=== PATIENT | male | born 1935 | race Caucasian/White ===

== ENCOUNTER 2017-04-29 23:01 | Observation (INO) | payer MEDICARE, OTHER ==
[2017-04-29 23:23] LABS: #Eosinphils 0.3 thou/uL (0.0-0.7); #Monocytes 0.9 thou/uL (0.11-0.59); #Neutrophils 3.7 thou/uL (1.40-6.50); %Basophils 0.4 % (0.0-1.0); %Eosinophils 3.9 % (0.0-10.0); %Lymphocytes 29.2 % (21.0-51.0); %Monocytes 12.6 % (0.0-10.0); Hemoglobin 16.5 g/dL (14.0-18.0); Mean Corpuscular HGB CONC 34.1 g/dL (32.0-36.0); Mean Corpuscular Hemoglobin 32.8 pg (27.0-31.0); Mean Corpuscular Volume 96.3 fl (80.0-94.0); Mean Platelet Volume 7.2 fL (7.4-10.4); Platelet Count 157 thou/uL (130-400); RBC Distribution Width 11.9 % (11.5-14.5); Red Blood Cell (RBC) Count 5.02 mill/uL (4.70-6.10); White Blood Cell (WBC) Count 6.9 thou/uL (4.8-10.8)
[2017-04-29] MEDS ORDERED: Nitroglycerin 2% Ointment 1 INCH/1 GM Packet ONE (23:25)
--- NOTE | 2017-04-29 23:28 | RAD ---
CHEST ONE VIEW 04/29/17 HISTORY: Chest pain. COMPARISON: None. FINDINGS: Portable upright chest demonstrates atherosclerosis of the aorta. Heart size is within normal limits. Costophrenic angles are clear. Diminished lung volumes, likely due to a poor inspiratory effort. Int erstitial opacities in the lung bases likely represent atelectasis. No consolidation or mass. No pneu mothorax or osseous abnormalities. Probable loose body fragment in the left glenohumeral joint. IMPRESSION: 1. Atherosclerosis. 2. No acute cardiopulmonary process. POS: [facility]
[2017-04-29 23:42] LABS: ALT (SGPT) 18 U/L (8-55); AST (SGOT) 29 U/L (5-34); Albumin 4.4 g/dL (3.4-4.8); Alkaline Phosphatase 80 U/L (40-150); Anion Gap 13 mmol/L (10-20); BUN (Urea Nitrogen) 15 mg/dL (8.4-25.7); Bilirubin, Total 0.8 mg/dL (0.2-1.2); CK (CPK) 112 U/L (30-200); Calc. Creatinine Clearance 0 mL/min (70-130); Calcium 9.9 mg/dL (7.8-10.44); Carbon Dioxide 28 mmol/L (23-31); Chloride 104 mmol/L (98-107); Estimated GFR-MDRD 67; Glucose 102 mg/dL (83-110); Potassium 3.8 mmol/L (3.5-5.1); Protein, Total 7.4 g/dL (5.8-8.1); Sodium 141 mmol/L (136-145)
[2017-04-29 23:52] LABS: CKMB 2.5 ng/mL (0-6.6); Troponin I Less than 0.010 ng/mL (< 0.028)
[2017-04-30 00:46] LABS: Bilirubin Negative (Negative); Blood, Urine Negative (Negative); Clarity CLEAR (Clear); Glucose, Urine (Dipstick) Negative (Negative); Leukocyte Negative (Negative); Nitrite Negative (Negative); Protein, Urine (Dipstick) Negative (Neg-Trace); Specific Gravity, Urine 1.015 (1.002-1.036); Urobilinogen 0.2 mg/dL (0.2-1.0); pH, Urine 6.5 (5.0-9.0)
[2017-04-30] MEDS ORDERED: Acetaminophen 325 MG TAB PO PRN ×2 (01:41→03:33)
[2017-04-30] MEDS ORDERED: Ondansetron HCl/PF 4 MG/2 ML Vial IVP PRN ×2 (01:41→03:33)
[2017-04-30] MEDS ORDERED: Ondansetron ODT 4 MG TAB SL PRN (01:41)
[2017-04-30 02:10] VITALS: BMI 26.8
[2017-04-30 02:55] LABS: Troponin I Less than 0.010 ng/mL (< 0.028)
[2017-04-30] MEDS ORDERED: Senokot 8.6 MG TAB PO PRN (03:33)
[2017-04-30] MEDS ORDERED: Nitroglycerin 0.4 MG TAB (25 Tab Bottle) SL PRN (03:33)
[2017-04-30] MEDS ORDERED: cloNIDine 0.1 MG TAB PO PRN (03:33)
[2017-04-30] MEDS ORDERED: Loratadine 10 MG TAB PO PRN (03:33)
[2017-04-30] MEDS ORDERED: Mag-Al 1200 mg/1200 mg/30 ML UDCUP PO PRN (03:33)
[2017-04-30] MEDS ORDERED: Diabetic Tussin 200 MG/10 ML UDCUP PO PRN (03:33)
[2017-04-30] MEDS ORDERED: traMADol HCl 50 MG TAB PO PRN (03:33)
[2017-04-30] MEDS ORDERED: Benzonatate 100 MG CAP PO PRN (03:33)
[2017-04-30] MEDS ORDERED: HYDROcodone/Acetaminophen 5/325 mg Tablet PO PRN (03:33)
[2017-04-30] MEDS ORDERED: hydrALAZINE 20 MG/ML VIAL SLOW IVP PRN (03:33)
[2017-04-30] MEDS ORDERED: Calcium Carbonate 500 MG ChewTAB PO PRN (03:33)
[2017-04-30] MEDS ORDERED: Bisacodyl 5 MG TAB PO PRN (03:33)
[2017-04-30 06:19] LABS: Cardiac Risk 3.1 (Less than 4.5)
[2017-04-30 06:24] LABS: Troponin I Less than 0.010 ng/mL (< 0.028)
--- NOTE | 2017-04-30 06:35 | HP ---
DATE OF ADMISSION: 04/30/2017 PRIMARY CARE PHYSICIAN: Kojo Walker M.D. CHIEF COMPLAINT: Chest pain. HISTORY OF PRESENTING ILLNESS: Mr. Morillo is a very pleasant 82-year-old male with past med ical history of hypertension and dyslipidemia who presented to the emergency room with the above-ment ioned complaint. History is mainly obtained by the patient himself and electronic medical records marie ve been reviewed. The patient reports that he is normally very active and works out on a regular basis. However, after his most recent workout about 2 days ago, he started to notice some left-sided chest pain which is s harply localized. It comes and goes, and it is not too severe. It is not associated with diaphoresi s, vomiting, palpitation or dizziness. It is nonradiating. He tried to put some heating pad on it, but it did not get better. The patient denies history of similar symptoms in the past. He presented to the ER last evening. In the emergency room, he was hemodynamically stable although a little bit hypertensive with blood pr essure of 169/95. His EKG showed nonspecific repolarization changes. His cardiac enzymes were trend ed and were negative. He received aspirin in the emergency room and is now being admitted for furthe r workup to rule out ACS. The patient never has been diagnosed with any cardiac disease. He has nev er had any risk stratification done. No significant family history except for some question of heart disease in his mother. He is a nonsmoker. PAST MEDICAL HISTORY: 1. Hypertension. 2. Dyslipidemia. 3. History of bladder cancer. PAST SURGICAL HISTORY: 1. Bladder tumor removal. 2. Hernia repair. SOCIAL HISTORY: The patient used to smoke cigarettes in the past, but has quit now. No history of d rug or alcohol abuse. ALLERGIES: No known medication allergies. MEDICATIONS: Aspirin 81 mg daily, amlodipine 5 mg daily, simvastatin daily, Aricept 5 mg daily, Marlon pro 10 mg daily. These medication dosages would need to be clarified further. REVIEW OF SYSTEMS: The following complete review of systems was negative, unless otherwise mentioned in the HPI or below: Constitutional: Weight loss or gain, ability to conduct usual activities. Sk in: Rash, itching. Eyes: Double vision, pain. ENT/Mouth: Nose bleeding, neck stiffness, pain, te nderness. Cardiovascular: Palpitations, dyspnea on exertion, orthopnea. Respiratory: Shortness of breath, wheezing, cough, hemoptysis, fever or night sweats. Gastrointestinal: Poor appetite, abdom inal pain, heartburn, nausea, vomiting, constipation, or diarrhea. Genitourinary: Urgency, frequenc y, dysuria, nocturia. Musculoskeletal: Pain, swelling. Neurologic/Psychiatric: Anxiety, depressio n. Allergy/Immunologic: Skin rash, bleeding tendency. LABORATORY AND DIAGNOSTIC DATA: CBC is unremarkable except for macrocytosis without anemia. Serum c hemistries are entirely unremarkable. Cardiac enzymes, troponin less than 0.010 x2 with normal CK-MB . Creatinine kinase is normal at 112, BNP of 49. Urinalysis unremarkable. Chest x-ray by my review has no evidence to suggest pleural effusion, edema, or infiltrate. A 12-lead EKG by my review shows normal sinus rhythm without any acute ST or T-wave changes. He does have some nonspecific repolariz ation changes and first degree AV block. PHYSICAL EXAMINATION: VITAL SIGNS: Recent vital signs, temperature 97.8, pulse of 51, respirations 14, saturating 93% to 9 5% on room air, blood pressure is 111/60. GENERAL: In no acute distress. Awake, alert, oriented x3. HEENT: Mucous membrane is moist and pink. No oropharyngeal exudate or erythema. Head is normocepha lic, atraumatic. Pupils are equal, reactive to light and accommodation. NECK: Supple without any lymphadenopathy, JVD, or bruit. CHEST: Clear to auscultation without any wheezing, rales, or rhonchi. Rate and rhythm are regular w ithout any murmur, rubs, or gallops. He does not have any tenderness on the palpation of the left an terior chest. ABDOMEN: Soft, nontender, nondistended with positive bowel sounds. No guarding, rebound, or rigidit y. No hepatosplenomegaly. EXTREMITIES: Free of any cyanosis, clubbing, or edema. NEUROLOGIC: Nonfocal. SKIN: Free of any rashes or bruises. Feels warm and dry to touch. PSYCHIATRIC: Normal affect. VASCULAR: +2 pedal pulses felt bilaterally. IMPRESSION AND PLAN: 1. Chest pain. This is likely secondary to musculoskeletal strain given his normal EKGs and serial cardiac enzymes; however, the patient has multiple risk factors in the form of advanced age, hyperten shereen, and dyslipidemia along with some family history. He also has a remote history of tobacco abuse . At this time, he will be admitted for further risk stratification. We will continue aspirin full dose now and restart his beta malina and statin and obtain a nuclear medicine stress test in the [facility]. He is currently hemodynamically stable. The likelihood of pulmonary embolism or aortic dissec tion or aneurysm is clinically very low. The patient has no hypoxia, hypotension, and he appears hem odynamically very stable. We will also check a lipid panel. Further management will depend upon the results of the stress test. 2. History of hypertension. We will restart his home medications once confirmed. 3. Dyslipidemia. Restart statin. 4. History of mild cognitive impairment. We will restart his Aricept. 5. Deep venous thrombosis and gastrointestinal prophylaxis DISPOSITION: The patient is currently being admitted under observation status for ACS workup. Furth er management will depend upon his clinical course.
[2017-04-30 07:43] VITALS: TEMP 97.5
[2017-04-30] MEDS ORDERED: Amlodipine 5 MG TAB PO SCH (09:00)
[2017-04-30] MEDS ORDERED: Enoxaparin Sodium 40 MG/0.4 ML SYRINGE SC SCH (09:00)
[2017-04-30] MEDS ORDERED: Donepezil HCl 5 MG TAB PO SCH (09:00)
[2017-04-30] MEDS ORDERED: Aspirin 325 MG TAB PO SCH (09:00)
[2017-04-30 11:36] VITALS: BP 161/79
--- NOTE | 2017-04-30 12:24 | SS ---
DATE OF ADMISSION: 04/30/2017 DATE OF DISCHARGE: 04/30/2017 PRIMARY CARE PHYSICIAN: Kojo Walker M.D. REASON FOR ADMISSION: Chest pain. HISTORY OF PRESENT ILLNESS: An 82-year-old male with history of hypertension, dyslipidemia, who came to emergency room last night with complaint of chest pain. Patient was having one particular point nearby epigastric chest pain, which he attributes to do upper body exercise, which he regularly does at gym and he did over couple of days ago and since then he was having that point tenderness in his chest. It was localized, left-sided, sharp and it was improving with pain medication, but coming back when pain medication is at go away. Last night his pain was persistent and sharp and it was not reducing with pain medication and he was concerned about heart attack and that is why he came to the emergency room. He denies any exertion related chest pain , palpitations, dizziness, syncope. He denies any nausea, vomiting, or diaphoresis. He denies any shortness of breath. He did not have any cough or fever. In the emergency room, his EKG showed normal sinus rhythm without any significant changes. He was given aspirin. Subsequently after admission, he had negative cardiac enzymes x3. His lipid profile was at a target. His telemetry remained unremarkable. After admission, he did not have any further chest pain while in hospital. He also underwent stress test and that stress test came back normal. I saw this patient personally and history obtained from him and he was not having any further chest pain since he is in hospital. PAST MEDICAL HISTORY: Hypertension, dyslipidemia, and history of bladder cancer. PAST SURGICAL HISTORY: Bladder tumor removal and hernia repair. PSYCHIATRIC HISTORY: Reviewed and negative. SOCIAL HISTORY: The patient has a remote history of smoking, but he quit smoking several years ago. He is . He lives at home with family. No history of alcohol or other illicit drug abuse. FAMILY HISTORY: No strong family history of CAD, CVA or cancer. ALLERGIES: No known drug allergies. PAST PSYCHIATRIC HISTORY: Anxiety and depression, senile dementia. CURRENT HOME MEDICATIONS: Aspirin 81 mg p.o. daily, amlodipine 5 mg p.o. daily , Zocor 40 mg p.o. at bedtime, Aricept 5 mg p.o. daily, and Lexapro 10 mg p.o. daily. REVIEW OF SYSTEMS: The following complete review of systems was negative, unless otherwise mentioned in the HPI or below: Constitutional: Weight loss or gain, ability to conduct usual activities. Skin: Rash, itching. Eyes: Double vision, pain. ENT/Mouth: Nose bleeding, neck stiffness, pain, tenderness. Cardiovascular: Palpitations, dyspnea on exertion, orthopnea. Respiratory: Shortness of breath, wheezing, cough, hemoptysis, fever or night sweats. Gastrointestinal: Poor appetite, abdominal pain, heartburn, nausea, vomiting, constipation, or diarrhea. Genitourinary: Urgency, frequency, dysuria, nocturia. Musculoskeletal: Pain, swelling. Neurologic/Psychiatric: Anxiety, depression. Allergy/Immunologic: Skin rash, bleeding tendency. Please see my HPI for pertinent positives and negatives. All other review of systems reviewed and negative except as mentioned in the HPI. SIGNIFICANT LABORATORY DATA AND IMAGING: CBC: WBC 6.9, hemoglobin 16.5, platelets 157. Sodium 141, potassium 3.8, chloride 104, carbon dioxide 28, BUN 15, creatinine 1.06, glucose 102, and calcium 9.9. LFT normal. Cardiac enzymes negative x3. BNP 49.6, LDL 75, cholesterol 136, and triglyceride 83. Urinalysis normal. Chest x-ray normal and stress test negative. ASSESSMENT AND PLAN/IMPRESSION: 1. Chest pain. The patient's description of chest pain and clinical examination is consistent with most likely musculoskeletal pain, most likely osteochondritis. The patient is working in gym and he had excessive physical exertion on couple of days ago that might have precipitated his pain. Pain improved with the pain medication. His EKG was normal. Cardiac enzymes negative. Stress test negative. Now, he is pain free. We ruled out cardiac etiology completely. Patient is given instructions to take pain medication as needed basis at home. 2. Hypertension. Patient will resume Norvasc 5 mg p.o. daily. 3. Dyslipidemia. The patient will resume Zocor 5 mg p.o. at bedtime. 4. Anxiety and depression. The patient will continue Lexapro 10 mg p.o. at bedtime. 5. Senile dementia. The patient will resume Aricept 5 mg p.o. daily. 6. Deep venous thrombosis prophylaxis not needed because we are expecting discharge in 24 hours. 7. Gastrointestinal prophylaxis. The patient is advised to take Pepcid over- the-counter basis as needed basis. 8. Code status: The patient is FULL CODE. The patient's is surrogate decision maker. DISPOSITION PLAN: The patient will be discharged today. DISCHARGE PLAN: Post-hospital, the patient will follow up with primary care physician in 1 week. The patient was admitted and discharged on the same day. TIME OF ADMISSION: After midnight 25 minutes. DATE OF DISCHARGE: 04/30/2017 at 12:00 p.m. Plan of care discussed with the patient and family member at bedside. All test results discussed with him in detail. [place]
--- NOTE | 2017-04-30 13:27 | NM ---
CARDIAC SPECT: CLINICAL HISTORY: 82-year-old male with chest pain, hypertension, dyslipidemia. TECHNIQUE: A myocardial perfusion scan was performed using the single isotope one day protocol with technetium-9 9m sestamibi. 10 mCi were injected intravenously for the rest exam followed by 33 mCi for the stress exam. Pharmacologic stress with Adenosine was monitored and interpreted by Therese Merida NP. FINDINGS: Homogeneous tracer distribution is seen in the myocardial segments on stress and rest images without fixed or reversible defects. GATED SPECT LVEF: 69%. WALL MOTION EXAM: Normal. IMPRESSION: Normal myocardial perfusion scan. POS: [facility]
[2017-04-30] MEDS ORDERED: ADENOSINE 60 MG/20 ML VIAL ONE (17:13)
[2017-04-30] MEDS ORDERED: Escitalopram Oxalate 10 mg Tablet PO SCH (21:00)
[2017-04-30] MEDS ORDERED: Simvastatin 5 MG TAB PO SCH (21:00)
--- NOTE | 2017-05-22 13:26 | EKG ---
Test Reason : CP Blood Pressure : / mmHG Vent. Rate : 063 BPM Atrial Rate : 063 BPM P-R Int : 250 ms QRS Dur : 098 ms QT Int : 406 ms P-R-T Axes : 018 -09 028 degrees QTc Int : 415 ms Sinus rhythm with 1st degree A-V block Otherwise normal ECG Confirmed by REYNALDO LAGUERRE ([id number]), editor house organ TRINH SUAREZ ([id number]) on 05/22/2017 1:26:22 PM Referred By: JOSE F Confirmed By:REYNALDO LAGUERRE
== END 2017-04-30 12:36 | disposition home or self-care (01) ==
LOC: ERS 23:01 → 2SW 04-30 00:25
PROVIDERS: ADMIT Internal Medicine; ATTEND Internal Medicine
DX: R07.89 Other chest pain (principal); I10 Essential (primary) hypertension; E78.5 Hyperlipidemia, unspecified; F41.8 Other specified anxiety disorders; F03.90 Unspecified dementia, unspecified severity, without behavioral disturbance, psychotic disturbance, mood disturbance, and anxiety; Z79.82 Long term (current) use of aspirin; Z79.899 Other long term (current) drug therapy; Z91.048 Other nonmedicinal substance allergy status; Z98.890 Other specified postprocedural states; Z85.51 Personal history of malignant neoplasm of bladder; Z87.891 Personal history of nicotine dependence
CPT/HCPCS: 71010; 78452; 80053; 80061; 81003; 82550; 82553; 83880; 84484 ×3; 85025; 93005; 93017; 96372; 99285; A9500; G0378; 36415; J0153; J1650

== ENCOUNTER 2017-05-27 16:29 | Emergency (ER) | payer MEDICARE, OTHER ==
[2017-05-27] MEDS ORDERED: Ondansetron HCl/PF 4 MG/2 ML Vial ONE (16:47)
[2017-05-27] MEDS ORDERED: Morphine 4 MG/ML VIAL ONE (16:47)
[2017-05-27 17:30] LABS: #Lymphocytes 0.5 thou/uL (1.20-3.40); #Monocytes 0.9 thou/uL (0.11-0.59); #Neutrophils 6.7 thou/uL (1.40-6.50); %Basophils 0.5 % (0.0-1.0); %Eosinophils 0.3 % (0.0-10.0); %Monocytes 10.8 % (0.0-10.0); %Neutrophils 82.3 % (42.0-75.0); Mean Corpuscular HGB CONC 33.4 g/dL (32.0-36.0); Mean Corpuscular Hemoglobin 32.1 pg (27.0-31.0); Mean Corpuscular Volume 96.1 fl (80.0-94.0); Mean Platelet Volume 7.6 fL (7.4-10.4); Platelet Count 127 thou/uL (130-400); Red Blood Cell (RBC) Count 5.28 mill/uL (4.70-6.10); White Blood Cell (WBC) Count 8.2 thou/uL (4.8-10.8)
[2017-05-27 17:54] LABS: CKMB 0.7 ng/mL (0-6.6); Troponin I Less than 0.010 ng/mL (< 0.028)
[2017-05-27 17:57] LABS: ALT (SGPT) 19 U/L (8-55); AST (SGOT) 32 U/L (5-34); Albumin 4.5 g/dL (3.4-4.8); Alkaline Phosphatase 71 U/L (40-150); Anion Gap 17 mmol/L (10-20); BUN (Urea Nitrogen) 14 mg/dL (8.4-25.7); Bilirubin, Total 1.3 mg/dL (0.2-1.2); CK (CPK) 296 U/L (30-200); Calc. Creatinine Clearance 0 mL/min (70-130); Calcium 10.1 mg/dL (7.8-10.44); Carbon Dioxide 22 mmol/L (23-31); Chloride 101 mmol/L (98-107); Estimated GFR-MDRD 53; Globulin 3.2 g/dL (2.4-3.5); Glucose 173 mg/dL (83-110); Potassium 3.9 mmol/L (3.5-5.1); Protein, Total 7.7 g/dL (5.8-8.1); Sodium 136 mmol/L (136-145)
[2017-05-27] MEDS ORDERED: Ibuprofen 200 MG TAB ONE (18:21)
--- NOTE | 2017-05-27 18:37 | RAD ---
CHEST ONE VIEW 05/27/17 HISTORY: Cough. Fever. Low O2 saturation. COMPARISON: 04/29/17. FINDINGS: Atherosclerosis of the aortic knob. Normal cardiac silhouette. Pulmonary vessels and hilum are normal . Blunting of the left costophrenic angle. Right costophrenic angle is clear. No mass. No consolidati on. No pneumothorax or osseous abnormalities. IMPRESSION: 1. Atherosclerosis of the aorta. 2. Blunting of the left costophrenic angle. POS: [facility]
[2017-05-27] MEDS ORDERED: Acetaminophen 500 MG TAB ONE (19:36)
[2017-05-27] MEDS ORDERED: Oseltamivir 75 MG CAP PO SCH (20:00)
== END 2017-05-27 21:03 | disposition home or self-care (01) ==
LOC: ERS 16:29
DX: J10.1 Influenza due to other identified influenza virus with other respiratory manifestations (principal); I10 Essential (primary) hypertension; E78.5 Hyperlipidemia, unspecified; Z87.891 Personal history of nicotine dependence; Z79.899 Other long term (current) drug therapy; Z79.82 Long term (current) use of aspirin
CPT/HCPCS: 36415; 71045; 80053; 82553; 84484; 85025; 96360; J2270; J2405

== ENCOUNTER 2017-06-01 13:24 | Inpatient (IN) | payer MEDICARE, OTHER ==
[~2017-06-01 13:24] MED LIST: Benzocaine 20% Spray 60 ML CAN ONE
[2017-06-01 15:33] LABS: Hemoglobin 14.6 g/dL (14.0-18.0); Mean Corpuscular HGB CONC 34.4 g/dL (32.0-36.0); Mean Corpuscular Hemoglobin 32.2 pg (27.0-31.0); Mean Corpuscular Volume 93.6 fl (80.0-94.0); Mean Platelet Volume 8.1 fL (7.4-10.4); Platelet Count 177 thou/uL (130-400); RBC Distribution Width 11.9 % (11.5-14.5); Red Blood Cell (RBC) Count 4.52 mill/uL (4.70-6.10); White Blood Cell (WBC) Count 10.9 thou/uL (4.8-10.8)
[2017-06-01 15:43] LABS: ALT (SGPT) 30 U/L (8-55); AST (SGOT) 42 U/L (5-34); Albumin 3.5 g/dL (3.4-4.8); Alkaline Phosphatase 79 U/L (40-150); Anion Gap 14 mmol/L (10-20); BUN (Urea Nitrogen) 22 mg/dL (8.4-25.7); Bilirubin, Total 1.7 mg/dL (0.2-1.2); Calc. Creatinine Clearance 0 mL/min (70-130); Calcium 9.7 mg/dL (7.8-10.44); Carbon Dioxide 25 mmol/L (23-31); Chloride 93 mmol/L (98-107); Estimated GFR-MDRD 73; Globulin 3.2 g/dL (2.4-3.5); Glucose 149 mg/dL (83-110); Potassium 3.3 mmol/L (3.5-5.1); Protein, Total 6.7 g/dL (5.8-8.1); Sodium 129 mmol/L (136-145)
[2017-06-01 15:52] LABS: INR-International Normal Ratio 1.1; Prothrombin Time 14.7 SEC (12.0-14.7)
[2017-06-01 15:54] LABS: CKMB 3.4 ng/mL (0-6.6); Troponin I 0.022 ng/mL (< 0.028)
[2017-06-01 15:59] LABS: Bilirubin Moderate (Negative); Blood, Urine Moderate (Negative); Clarity CLEAR (Clear); Glucose, Urine (Dipstick) Negative (Negative); Leukocyte Trace (Negative); Nitrite Negative (Negative); Protein, Urine (Dipstick) 100 mg/dL (Neg-Trace); Specific Gravity, Urine 1.033 (1.002-1.036)
[2017-06-01 16:07] LABS: Bacteria/HPF None Seen HPF (None Seen); Hyaline Casts/LPF 4-6 HYALINE CAST LPF (0-3 Hyaline); Pathc Cast-AUWi Flag 0.67 (0-2.49); RBC/HPF 0-3 HPF (0-3); Squamous Epithelial 0-3 HPF (0-3)
[2017-06-01 16:09] LABS: Yeast-AUWi Flag 46.7 (0-25.0)
[2017-06-01 16:14] LABS: Band 40 % (5-11); Lymphocytes 1 % (21-51); MDiff Complete? YES; Monocytes 5 % (0-10); Neutrophil 54 % (42-75); PLT Morphology Comment Appears Adequate
[2017-06-01 16:15] LABS: Renal Epithelial None Seen HPF (0-3); Transitional Epithelial NONE SEEN HPF (0-3); Yeast-All Forms None Seen HPF (None Seen)
--- NOTE | 2017-06-01 16:27 | RAD ---
TWO PORTABLE VIEWS OF THE CHEST: Indication: Cough. Comparison: 05-27-17 FINDINGS: Since the comparison examination there is worsening there is worsening cardiomegaly and pulmonary vas culature; however, there are now patchy areas of air space consolidation within the right lung and le ft lower lung which can be related to airway edema; however, pneumonia could have a similar appearanc e. There is a tiny left pleural effusion present. No pneumothorax is evident. Vascular calcification of the aortic arch is similar. IMPRESSION: 1. Cardiomegaly with mild pulmonary vascular congestion may reflect a component of CHF. 2. Airspace opacities within the right lung and left infrahilar region and may be related airway emigdio a, however, this could also be related to pneumonia. Recommend continued follow up. POS: [facility]
[2017-06-01 16:44] LABS: Magnesium 1.7 mg/dL (1.6-2.6)
[2017-06-01] MEDS ORDERED: Vancomycin HCl 1.25 GM in Sodium Chloride 0.9% 250 ML 250 ML IVPB SCH (17:00)
[2017-06-01] MEDS ORDERED: ISOVUE-370 76%-LOCM 1 ML ONE (17:33)
[2017-06-01] MEDS ORDERED: Piperacillin/Tazobactam 4.5 GM in Sodium Chloride 0.9% 100 ML IVPB SCH (18:30)
[2017-06-01 18:42] LABS: Troponin I 0.016 ng/mL (< 0.028)
[2017-06-01] MEDS ORDERED: Potassium Chloride 20 MEQ TAB PO SCH (18:45)
--- NOTE | 2017-06-01 19:02 | CT ---
CT CHEST WITH IV CONTRAST CT ABDOMEN WITH IV CONTRAST CT PELVIS WITH IV CONTRAST 06/01/17 HISTORY: 82-year-old male with abdominal pain, cough, cold, weakness. FINDINGS: No mediastinal, hilar or axillary mass or lymphadenopathy seen. No pleural or pericardial effusions s een. there are consolidative changes in the lungs bilaterally, most prominent in the right upper lobe . No pneumothoraces or cavitation is seen. Low density lesions in the liver and kidneys are consistent with cysts. The largest cyst in the liver measures 3 cm and in the kidney (superior pole right kidney) measures 9 cm. The pancreas, spleen and adrenal glands are normal. No free air, free fluid, or lymphadenopathy see in the abdomen or pelvis. No abnormal loculated fluid collection is seen to suggest abscess formation. There are vascular calcifications without evidence of thoracoabdominal aortic aneurysm. Degenerative changes are seen in the thoracolumbar spine. A small hiatal hernia is present. The small bowel loops are not abnormally dilated. There is sigmoid diverticulosis. A small fat containing left inguinal her mayela is present. IMPRESSION: 1. Pneumonia. 2. Liver and renal cysts. 3. Small hiatal hernia. 4. Sigmoid diverticulosis. POS: [facility]
[2017-06-01] MEDS ORDERED: Calcium Carbonate 500 MG ChewTAB PO PRN (19:46)
[2017-06-01] MEDS ORDERED: HYDROcodone/Acetaminophen 5/325 mg Tablet PO PRN (19:46)
[2017-06-01] MEDS ORDERED: Ondansetron HCl/PF 4 MG/2 ML Vial IVP PRN (19:46)
[2017-06-01] MEDS ORDERED: Zolpidem Tartrate 5 MG TAB PO PRN (19:46)
[2017-06-01] MEDS ORDERED: VANCOMYCIN IVPB PRN (20:07)
[2017-06-01 20:39] LABS: Troponin I 0.018 ng/mL (< 0.028)
[2017-06-01] MEDS: Escitalopram Oxalate 10 mg Tablet PO SCH (21:29)
[2017-06-01] MEDS: Famotidine/PF 20 mg/2ml Vial SLOW IVP SCH (21:30)
[2017-06-01] MEDS: Docusate 100 MG CAP PO SCH (21:30)
[2017-06-01] MEDS: cefTRIAXone\\ROCEPHIN 2 GM in Sodium Chloride 0.9% 100 ML IVPB SCH (21:40)
[2017-06-01] MEDS: Sodium Chloride 0.9% 1,000 ML IV SCH (21:40)
--- NOTE | 2017-06-02 01:18 | HP ---
CHIEF COMPLAINT: Cough, cold, congestion, fever, and flu-like symptoms. HISTORY OF PRESENT ILLNESS: This is an 82-year-old pleasant gentleman who was apparently in usual [facility] until about a week back when he had the flu-like symptoms. He came to the ER and was d iagnosed with flu and he was sent home with Tamiflu. He took his medications, but it did not give hi m much relief. He saw his primary care physician yesterday and today, who told him to come to the em ergency room because of his shortness of breath. The patient has been having flu-like symptoms, subj ective fevers, chills, lack of appetite for the last couple of days, and has been feeling more weak a s well. Because of all these reasons, the patient was brought to the hospital for further evaluation and treatment. Of note, the patient today at home had a pulse ox of 75% on room air. The patient i s being admitted to the hospital for evaluation and treatment of this. PAST MEDICAL HISTORY: Significant for hypertension, hyperlipidemia, history of bladder cancer. PAST SURGICAL HISTORY: Bladder tumor removal, hernia repair. SOCIAL HISTORY: He used to smoke cigarettes in the past, but quit. No history of alcohol or drug us e. ALLERGIES: No known drug allergies. MEDICATIONS: The patient's medications include aspirin 81 mg p.o. daily, amlodipine 5 mg p.o. daily, simvastatin daily, Aricept 5 mg p.o. daily, Lexapro 10 mg p.o. daily. Please see med rec as well. FAMILY HISTORY: Negative for diabetes, hypertension. REVIEW OF SYSTEMS: Significant for cough, cold, fever, chills, brownish sputum expectoration, genera lized weakness, distention of the abdomen, and decreased urine output. Otherwise, no headache, no ap petite, no hearing loss, no latencies. No dysuria. No polyuria. No memory or mood changes. No nec k pain. PHYSICAL EXAMINATION: VITAL SIGNS: The patient's blood pressure is 132/79, temperature is 99.2, pulse is 79, breathing 94 on 4 liters. The patient's room air sats were 89 in the ER. GENERAL: The patient is lying in bed in mild respiratory distress. HEENT: Atraumatic, normocephalic. Pupils equally round and reactive to light. Extraocular movement s intact. Mucous membranes moist. NECK: Supple. No JVD. CHEST: Coarse breath sounds heard. Some dependent crackles. HEART: S1, S2 normal. No murmurs or gallops. ABDOMEN: Soft, distended, tympanic in note. Bowel sounds are present. EXTREMITIES: No cyanosis, clubbing, or edema. Distal pulses present. NEUROLOGIC: Alert, awake, and oriented. No cranial nerve deficits. No sensorimotor deficits. LABORATORY DATA: BNP is 457. UA shows 4-6 wbc's. WBC count is 10.9 with 40 bands, hemoglobin is 14 . TSH is 0.715. Troponin is 0.02. Sodium is 129, potassium is 3.3, creatinine is 0.9, total biliru bin is 1.7, bands 140. EKG shows normal sinus rhythm. ASSESSMENT AND PLAN: 1. Sepsis secondary to bilateral pneumonia. We will do Levaquin and Rocephin. Do blood cultures an d sputum cultures. We will test for flu again. Consult Dr. Ford and follow his recommendations. N ebulizer treatments as needed and p.r.n. cough medications as needed. 2. Hyponatremia. We will gently hydrate the patient. 3. Hypokalemia. We will replace that. 4. Possible urinary tract infection. We will do urine cultures and do the need for. 5. Mild dementia. We will monitor throughout his hospital stay. 6. Sequential compression devices for deep venous thrombosis prophylaxis. I will follow the labs an d do the need for.
[2017-06-02 05:18] LABS: ALT (SGPT) 25 U/L (8-55); AST (SGOT) 35 U/L (5-34); Albumin 3.1 g/dL (3.4-4.8); Alkaline Phosphatase 71 U/L (40-150); Anion Gap 13 mmol/L (10-20); BUN (Urea Nitrogen) 21 mg/dL (8.4-25.7); Bilirubin, Total 1.1 mg/dL (0.2-1.2); Calc. Creatinine Clearance 77 mL/min (70-130); Calcium 9.3 mg/dL (7.8-10.44); Carbon Dioxide 24 mmol/L (23-31); Chloride 99 mmol/L (98-107); Estimated GFR-MDRD 80; Globulin 2.9 g/dL (2.4-3.5); Glucose 126 mg/dL (83-110); Potassium 3.7 mmol/L (3.5-5.1); Sodium 132 mmol/L (136-145)
[2017-06-02 05:42] LABS: Band 24 % (5-11); Hemoglobin 13.5 g/dL (14.0-18.0); Lymphocytes 5 % (21-51); MDiff Complete? YES; Mean Corpuscular HGB CONC 33.3 g/dL (32.0-36.0); Mean Corpuscular Hemoglobin 31.7 pg (27.0-31.0); Mean Platelet Volume 7.6 fL (7.4-10.4); Monocytes 5 % (0-10); Neutrophil 66 % (42-75); Platelet Count 198 thou/uL (130-400); RBC Distribution Width 11.9 % (11.5-14.5); Red Blood Cell (RBC) Count 4.26 mill/uL (4.70-6.10)
[2017-06-02] MEDS: Vancomycin HCl 1.25 GM in Sodium Chloride 0.9% 250 ML 250 ML IVPB SCH ×2 (06:09→20:24)
[2017-06-02] MEDS ORDERED: Potassium Chloride 20 MEQ TAB PO SCH (08:00)
[2017-06-02] MEDS: Aspirin 81 mg Enteric Coated Tablet PO SCH (09:27)
[2017-06-02] MEDS: Docusate 100 MG CAP PO SCH ×2 (09:29→20:11)
[2017-06-02] MEDS: Famotidine/PF 20 mg/2ml Vial SLOW IVP SCH ×2 (09:30→20:10)
[2017-06-02] MEDS: Donepezil HCl 5 MG TAB PO SCH (09:30)
[2017-06-02] MEDS: Sodium Chloride 0.9% 1,000 ML IV SCH (09:41)
[2017-06-02] MEDS ORDERED: Propofol 1,000 MG/100 ML VIAL IV ONE (17:43)
[2017-06-02] MEDS ORDERED: Midazolam HCl 2 mg/2 ml Vial ONE (17:57)
--- NOTE | 2017-06-02 18:02 | PDOC.PN ---
- Subjective Encounter Start Date: 06/02/17 Encounter Start Time: 18:00 c/o cough, some blood streak sputum still hypoxic no f/c no n/v - Objective MAR Reviewed: Yes Vital Signs & Weight: Vital Signs (12 hours) Temp Pulse Resp BP Pulse Ox 06/02/17 15:00 97.5 F L 80 22 H 153/76 H 94 L 06/02/17 11:00 98.0 F 71 24 H 116/80 93 L 06/02/17 10:07 73 24 H 93 L 06/02/17 08:00 99.5 F 69 20 97 06/02/17 07:20 99.5 F 69 20 143/80 H 97 Weight Admit Weight 189 lb 1.6 oz Weight 189 lb 1.6 oz I&O: 06/01/17 06/02/17 06/03/17 06:59 06:59 06:59 Intake Total 300 Output Total 325 Balance -25 Result Diagrams: 06/02/17 04:30 06/02/17 04:30 Phys Exam - Physical Examination Constitutional: NAD HEENT: PERRLA Neck: no JVD coarse bs Cardiovascular: no significant murmur Gastrointestinal: non-tender Musculoskeletal: pulses present Neurological: moves all 4 limbs Psychiatric: A&O x 3 Dx/Plan (1) Sepsis Code(s): A41.9 - SEPSIS, UNSPECIFIED ORGANISM Status: Acute (2) PNA (pneumonia) Code(s): J18.9 - PNEUMONIA, UNSPECIFIED ORGANISM Status: Acute (3) Hyponatremia Code(s): E87.1 - HYPO-OSMOLALITY AND HYPONATREMIA Status: Acute (4) Hypokalemia Code(s): E87.6 - HYPOKALEMIA Status: Acute (5) Dyslipidemia Code(s): E78.5 - HYPERLIPIDEMIA, UNSPECIFIED Status: Chronic (6) Hypertension Code(s): I10 - ESSENTIAL (PRIMARY) HYPERTENSION Status: Chronic - Plan * f/u cultures * cont abx * monitor labs
[2017-06-02] MEDS ORDERED: Lorazepam 2 MG/ML VIAL ONE (18:28)
[2017-06-02 18:59] LABS: Actual Bicarbonate (HCO3a) 23.3 mEq/L (22-26); Base Excess (BEa) -1.5 mEq/L (0 (+/-) 2.5); CO2 Tension 39.6 mmHg (35.0-45.0); Calcium, Ionized 1.3 mmol/L (1.12-1.30); Hematocrit-ABG 39.3 % (42.0-52.0); Hemoglobin (Hb) 12.3 g/dL (14.0-18.0); O2 Tension (PaO2) 70.3 mmHg (80.0-100.0); pH, Arterial 7.39 (7.35-7.45)
[2017-06-02] MEDS ORDERED: DISCONTINUE PREVIOUS NARCOTIC PAIN MEDICATIONS AND BENZODIAZEPINES FS SCH (19:00)
[2017-06-02] MEDS ORDERED: Morphine 2 MG/ML SYRINGE SLOW IVP PRN (19:00)
[2017-06-02] MEDS ORDERED: Fentanyl BOLUS 250 ML IVPB PRN (19:00)
[2017-06-02] MEDS ORDERED: Lorazepam 2 MG/ML VIAL SLOW IVP PRN (19:00)
[2017-06-02] MEDS ORDERED: Vecuronium 10 MG VIAL IV PRN (19:09)
[2017-06-02 19:22] LABS: Puncture Site LBA
[2017-06-02] MEDS: Linezolid 600 MG in Premix Bag 1 BAG IVPB SCH (20:11)
[2017-06-02] MEDS: Escitalopram Oxalate 10 mg Tablet PO SCH (20:22)
[2017-06-02] MEDS: cefTRIAXone\\ROCEPHIN 2 GM in Sodium Chloride 0.9% 100 ML IVPB SCH (22:02)
[2017-06-02] MEDS: Propofol 1,000 MG/100 ML VIAL IV PRN (22:04)
[2017-06-02] MEDS: fentaNYL Citrate/PF 2,000 MCG in Sodium Chloride 0.9% 60 ML IV SCH (22:04)
--- NOTE | 2017-06-03 00:24 | CON ---
DATE OF CONSULTATION: 06/02/2017 REASON FOR CONSULTATION: Post-influenza pneumonia. HISTORY OF PRESENT ILLNESS: An 82-year-old, second admission to this hospital. Patient has a histor y of hypertension and bladder cancer, and was admitted at the beginning of April last year with ch est pain. The discharge diagnoses included atypical chest pain, hypertension, and senile dementia. A week before this admission, he had fever and respiratory symptoms, were seen in the emergency room and sent home with Tamiflu without improvement and then he developed worsening dyspnea with persisten ce of fevers, anorexia, worsening weakness. At home, pulse oximetry was noted to be decreased and he was brought to the emergency room and admitted. BP 130/70, temperature 99.2, pulse 79, and his O2 s ats were 94 on 4 liters of nasal cannula and room air at 89. He was in mild respiratory distress. C hest with coarse breath sounds. Regular rate and rhythm. Abdomen is soft, mildly distended. Initia l white cell count 10.9 with predominance of bands at 40%. Sodium 129, creatinine 0.9. Chest x-ray showed extensive area of infiltrate in the right lung and left lower lung as well. The patient had a chest, abdomen, and pelvis CT, which shows an extensive area of pneumonia on the right side and live r cysts. The patient has just been brought from the intermediate care unit towards the ICU and Dr. Albaro bunn finished doing a BAL and intubation. There is a lot of hemorrhagic fluid lavaged from the airwa ys. PAST MEDICAL HISTORY: Includes hypertension, dementia, hyperlipidemia, bladder cancer is unknown wit h previous removal, hernia repair. SOCIAL HISTORY: Former smoker. ALLERGIES: None. MEDICATIONS: Aspirin, Norvasc, Zocor, Aricept, Lexapro. Currently on the vancomycin, ceftriaxone, a nd Levaquin. FAMILY HISTORY: Noncontributory. PHYSICAL EXAMINATION: VITAL SIGNS: Temperature max 99.5, blood pressure 150/76, pulse 80, respirations 20-24, O2 sat 94%. SKIN: Shows facial skin changes consistent with rosacea. The patient has a peripheral IV access and a [place] catheter. HEENT: Miotic pupils, some conjunctival hyperemia. Orotracheal intubation. LUNGS: With coarse breath sounds, with diminished breath sounds on the right. No wheezing. HEART: S1, S2, regular rate. ABDOMEN: Not distended. No ascites. No bladder distention, no organomegaly. EXTREMITIES: No joint inflammatory activity. I could not test his movements due to sedation. LABORATORY DATA: His white cell count is up to 13,000, hemoglobin 13, platelets 198 with 66% neutrop hils, 24% bands. INR 1.1. Sodium 138, creatinine 0.91, AST 35, ALT 25, alkaline phosphatase 71, alb umin 3.1, globulin 2.9. Urinalysis with 4-6 wbc's. Microbiology showed influenza test positivity fr om antigen tests from 05/27. There is one set of blood cultures with gram positive rods. A repeat i nfluenza A and B antigen test this time was negative and the respiratory secretion with 0 to 5 epithe lial cells, many wbc's, moderate gram positive cocci, moderate gram positive rods, and a few gram neg ative rods. ASSESSMENT: Mild dementia with hypertension and recent episode of influenza A treated, but now with post-influenza pneumonia. DISCUSSION: The patient has developed respiratory insufficiency requiring ventilation. The hemorrha gic characteristic of the BAL is consistent with the necrotizing pneumonia. The most common pathogen s associated with this presentation includes Staphylococcus aureus including the possibility of MRSA, Streptococcus pneumonia, and Streptococcus pyogenes. Continue Rocephin and Levaquin. I will switch him to Zyvox. Monitor results of cultures and adjust the antimicrobials accordingly.
--- NOTE | 2017-06-03 03:18 | OP ---
DESCRIPTION OF PROCEDURE: Mr. Morillo was in the semirecumbent position. Bite block was placed in his mouth. Throat was sprayed with Cetacaine spray. The bronchoscope was introduced through his mouth and passed through his cords and he subsequently was easily intubated with a 7.52. He was then sedat ed with Versed, followed by propofol, followed eventually by vecuronium once he is clearly deeply sed ated. He is still dyssynchronous with mechanical ventilation, so he was paralyzed chemically. His hemodynamics remained stable throughout. Met with family after intubation and answered all their questions. They will be going home for some rest tonight. They were worried they would have to stay up with him because they were very concerned that he might not make it through the night. The bronchoscope was reintroduced after intubation and his tracheobronchial tree was inspected. The majority of the blood appeared to be coming from his right lower lobe. I did not see a lesion in his right lower lobe, but he also had copious blood. His bronchial tubes are irrigated with saline and specimens aspirated were sent for Gram stain and culture. His right lower lobe, right middle lobe, right upper lobe, left lower lobe, and left upper lobe were visualized. No endobronchial lesions were seen.
--- NOTE | 2017-06-03 03:57 | CON ---
DATE OF CONSULTATION: 06/02/2017 This is a 45 minute critical care progress note independent of the procedure performed. HISTORY OF PRESENT ILLNESS: This is an unfortunate 82-year-old male. He is actually extremely physi rusty active, works out every day and apparently according to his family, he is extremely fit. A week ago, he was diagnosed with flu and treated with Tamiflu. I felt no improvement and then start ed declining 2 days ago. He presented to the emergency room and subsequently he was admitted. He marie s had hemoptysis since admission. He has had progressive decline in his clinical status today per my discussion with the nursing staff and the family in the room, there is probably 4 family members in the room. They have informed me when I saw consult this evening, he was starting to look tired. I was consulted by the nursing staff and the respiratory therapist because of his distress. He recei eleazar no phone call from the attending physician. PAST MEDICAL HISTORY: Remarkable for hypertension, lipid disorder, and bladder cancer as well as a h erniorrhaphy. SOCIAL HISTORY: He is a distant smoker. He is not a daily drug or alcohol user. ALLERGIES: He has no drug allergies. MEDICATIONS: Prior to admission, he was on baby aspirin, Norvasc, simvastatin, Aricept, and Lexapro. FAMILY HISTORY: Positive for diabetes and hypertension. REVIEW OF SYSTEMS: Otherwise negative. He has had subjective fever, cough, chest congestion, and he moptysis. He denies chest pain. Family has noticed that his abdomen has been a little more protuber ant since he has become ill. He said no headache or change in vision with this, he denies bright red blood per rectum or melena. The remainder of his 12-point review of systems is negative. PHYSICAL EXAMINATION: GENERAL: When I saw him this afternoon, he is in moderate distress. VITAL SIGNS: Blood pressure was 133/84, heart rate was 90, respiratory rate was in the mid 20s. HEENT: Pupils are equal. Sclerae are anicteric. He is using accessory muscles. He appeared fatigu ed. He would open his eyes and interact and then he will go back to sleep. He had no cervical lymph adenopathy. LUNGS: Remarkable for coarse rhonchi in his right chest and looked to a lesser degree in his left ch est. HEART: Regular rhythm, no S3. ABDOMEN: Soft and nontender. EXTREMITIES: Without clubbing, cyanosis, or edema. IMAGING: Chest radiograph reviewed by me, which shows an impressive alveolar infiltrate in his right lung, chest, abdomen, and pelvis CT done yesterday in the afternoon showed the alveolar infiltrate, nothing else. IMPRESSION: Community-acquired pneumonia after the flu, this most likely pneumococcus. There is one blood culture reported as a gram-positive anders. It is unclear whether or not this is a contaminant. He clearly has signs of respiratory muscle fatigue. I met with the family and answered all their que stions. I recommended intubation, mechanical ventilation, nutritional support via gastric tube proba jason starting tomorrow, bronchoscopy with intubation to rule out an endobronchial lesion causing hemop tysis. They are agreeable and he was transferred to the Critical Care Unit. He subsequently been in tubated and has been stabilized. He has been sedated and paralyzed from mechanical ventilation. Critical care time 45 minutes independent of procedures.
[2017-06-03] MEDS: Propofol 1,000 MG/100 ML VIAL IV PRN ×3 (05:24→20:26)
[2017-06-03 06:30] LABS: Anion Gap 13 mmol/L (10-20); BUN (Urea Nitrogen) 21 mg/dL (8.4-25.7); Calc. Creatinine Clearance 84 mL/min (70-130); Calcium 9.2 mg/dL (7.8-10.44); Carbon Dioxide 21 mmol/L (23-31); Chloride 101 mmol/L (98-107); Estimated GFR-MDRD 88; Glucose 171 mg/dL (83-110); Potassium 3.2 mmol/L (3.5-5.1); Sodium 132 mmol/L (136-145)
[2017-06-03 06:41] LABS: Band 15 % (5-11); Hemoglobin 12.3 g/dL (14.0-18.0); Lymphocytes 3 % (21-51); MDiff Complete? YES; Mean Corpuscular HGB CONC 33.3 g/dL (32.0-36.0); Mean Corpuscular Hemoglobin 31.8 pg (27.0-31.0); Mean Corpuscular Volume 95.5 fl (80.0-94.0); Mean Platelet Volume 7.7 fL (7.4-10.4); Monocytes 6 % (0-10); Myelocyte 1 % (0-0); Neutrophil 75 % (42-75); Platelet Count 212 thou/uL (130-400); RBC Distribution Width 11.9 % (11.5-14.5); Red Blood Cell (RBC) Count 3.88 mill/uL (4.70-6.10); White Blood Cell (WBC) Count 11.5 thou/uL (4.8-10.8)
[2017-06-03 06:46] LABS: Vancomycin, Trough 4.9 ug/mL
[2017-06-03 07:22] LABS: Actual Bicarbonate (HCO3a) 23.9 mEq/L (22-26); Base Excess (BEa) -1.1 mEq/L (0 (+/-) 2.5); CO2 Tension 40.8 mmHg (35.0-45.0); Calcium, Ionized 1.3 mmol/L (1.12-1.30); Hematocrit-ABG 39.9 % (42.0-52.0); Hemoglobin (Hb) 12.1 g/dL (14.0-18.0); pH, Arterial 7.39 (7.35-7.45)
[2017-06-03 07:29] LABS: Puncture Site RR
--- NOTE | 2017-06-03 07:52 | RAD ---
PORTABLE CHEST SEMIUPRIGHT: HISTORY: An 82-year-old male with respiratory insufficiency. COMPARISON: 06/01/17. FINDINGS: NG tube and Endotracheal tubes have been placed. Patchy increased linear and interstitial markings b ilaterally with some confluence in the right upper lobe and more prominent patchy parenchymal changes in the right perihilar region. IMPRESSION: Nasogastric tube and endotracheal tube placement. Patchy parenchymal changes more prominent and conf luent in the right lung, particularly the right upper lobe. Continue short-term for clearing or stab ility. POS: ЕЛЕНА
[2017-06-03] MEDS: Famotidine/PF 20 mg/2ml Vial SLOW IVP SCH ×2 (08:23→20:34)
[2017-06-03] MEDS: Linezolid 600 MG in Premix Bag 1 BAG IVPB SCH ×2 (08:23→21:07)
[2017-06-03] MEDS: Docusate 100 MG CAP PO SCH (08:24)
[2017-06-03] MEDS: Aspirin 81 mg Enteric Coated Tablet PO SCH (08:24)
[2017-06-03] MEDS: Amlodipine 5 MG TAB PO SCH (08:24)
[2017-06-03] MEDS: Donepezil HCl 5 MG TAB PO SCH (08:24)
[2017-06-03] MEDS: Sodium Chloride 0.9% 1,000 ML IV SCH (09:05)
[2017-06-03 18:35] LABS: Legionella Urinary Ag Negative (Negative)
[2017-06-03 18:36] LABS: Strep pneumo Urine Ag NEGATIVE (NEGATIVE)
[2017-06-03] MEDS: cefTRIAXone\\ROCEPHIN 2 GM in Sodium Chloride 0.9% 100 ML IVPB SCH (20:27)
[2017-06-03] MEDS: Docusate Sodium 100 MG/10 ML UDCUP PO SCH (20:29)
[2017-06-03] MEDS: Escitalopram Oxalate 10 mg Tablet PO SCH (20:29)
--- NOTE | 2017-06-03 21:25 | PRG ---
DATE OF SERVICE: 06/03/2017 The patient is intubated in ICU, appears rested and sedated actually. OBJECTIVE: VITAL SIGNS: His temperature is max 100.8 at 7:00 p.m. yesterday and is currently 98.6, blood pressu re 112/60 and a pulse of 64. His I's and O's are positive 1000 yesterday and thus far 20 positive. Urinary output 440 yesterday and then 330 thus far. LUNGS: Symmetric air entry. Coarse breath sounds. HEART: S1, S2, regular rate. ABDOMEN: Distended with positive fluid wave suggestive of ascites. LABORATORY: Could not check his movements. Sodium 132, creatinine 0.84, AST 35, albumin 3.1. White cell count at 11.5, hemoglobin 12.3, platelets 212, bands are down from 40-15%. INR 1.1. PH 7.39, pCO2 of 40, pO2 of 53 and cultures from bronchial washing few composite rods with normal respiratory lakeshia present. Another sample from sputum with polymicrobial lakeshia. Blood cultures with gram positi ve anders 1/2, possible contaminant. The operative note per Dr. Watt was reviewed of the bronchoscopy. Blood was coming from the right lower lobe, no lesions seen, but copious blood in the area was irri gated. ASSESSMENT AND DISCUSSION: Mild dementia, hypertension, and bladder cancer in remission, recent epis ode of influenza A treated and now it appears to be post-influenza pneumonia, hemorrhagic features. Post-influenza pneumonia associated with hemorrhagic features can be secondary to bacterial pathogens such as Streptococcus pyogenes and Staphylococcus aureus, but also secondary to influenza virus dire ct infection with hemorrhagic bronchiolitis. The cultures do not indicate a single pathogen and it i s possible that he might have persistence of influenza virus infection with a lower respiratory tract involvement. Continue with Zyvox, Rocephin and levofloxacin.
--- NOTE | 2017-06-04 00:01 | PRG ---
DATE OF SERVICE: 06/03/2017 SUBJECTIVE: He will wake and nod. He moves all extremities. He is in no distress this morning. OBJECTIVE: VITAL SIGNS: His heart rate is in the 60s, respiratory rate is the teens, oximetry is 100%, blood pressure 121/70. Intake and output was positive 1002. LUNGS: Remarkable for rhonchi that improved compared to yesterday. HEART: Regular rhythm. ABDOMEN: Soft and nontender. LABORATORY DATA: White count 11.5, hemoglobin 12.3, platelets 212,000. Sodium 132, potassium 3.2, chloride 101, bicarb 21, BUN 21, creatinine 0.84, glucose 171, pH of 7.39, CO2 of 40, pO2 of 53. His FiO2 is down from 100% yesterday to 60% today. Chest radiograph reviewed by me still shows right-sided infiltrate. IMPRESSION: 1. Community-acquired pneumonia. 2. Advanced age. 3. Respiratory failure. 4. Anemia secondary to positive fluid balance with normal hemoglobin on admission. His bands have come down from 40% to 15% over the last 2 days. His bronchoscopy culture yesterday shows few gram positive rods. He had been on antibiotics, so it is unlikely to be helpful. I met with family and answered all of his questions. I have explained to him that he will not be weanable for several days. He does appear to be clinically improving. We need to start nutrition on him. Critical care time 35 minutes. MTDD
[2017-06-04] MEDS: Propofol 1,000 MG/100 ML VIAL IV PRN ×4 (03:50→16:11)
[2017-06-04 06:19] LABS: Anion Gap 12 mmol/L (10-20); BUN (Urea Nitrogen) 24 mg/dL (8.4-25.7); Calc. Creatinine Clearance 76 mL/min (70-130); Calcium 9.4 mg/dL (7.8-10.44); Carbon Dioxide 22 mmol/L (23-31); Chloride 103 mmol/L (98-107); Estimated GFR-MDRD 76; Glucose 164 mg/dL (83-110); Potassium 3.2 mmol/L (3.5-5.1); Sodium 134 mmol/L (136-145)
[2017-06-04 06:23] LABS: Band 10 % (5-11); Hemoglobin 12.1 g/dL (14.0-18.0); Lymphocytes 4 % (21-51); MDiff Complete? YES; Mean Corpuscular HGB CONC 32.5 g/dL (32.0-36.0); Mean Corpuscular Hemoglobin 31.1 pg (27.0-31.0); Mean Corpuscular Volume 95.6 fl (80.0-94.0); Mean Platelet Volume 7.6 fL (7.4-10.4); Metamyelocyte 1 % (0-0); Monocytes 4 % (0-10); Neutrophil 81 % (42-75); PLT Morphology Comment Appears Adequate; Platelet Count 236 thou/uL (130-400); RBC Distribution Width 12.1 % (11.5-14.5); Red Blood Cell (RBC) Count 3.89 mill/uL (4.70-6.10); White Blood Cell (WBC) Count 16.9 thou/uL (4.8-10.8)
[2017-06-04 06:37] LABS: Actual Bicarbonate (HCO3a) 24.1 mEq/L (22-26); CO2 Tension 41.8 mmHg (35.0-45.0); Calcium, Ionized 1.3 mmol/L (1.12-1.30); Hematocrit-ABG 38.2 % (42.0-52.0); Hemoglobin (Hb) 11.8 g/dL (14.0-18.0); O2 Tension (PaO2) 90.2 mmHg (80.0-100.0); Puncture Site RRA; pH, Arterial 7.38 (7.35-7.45)
--- NOTE | 2017-06-04 08:36 | RAD ---
PORTABLE CHEST: DATE: 06/04/17. PROVIDED CLINICAL HISTORY: Respiratory insufficiency. FINDINGS: Comparison with 06/03/17. Endotracheal tube and enteric catheter appear stable in position. There is poor definition to the left hemidiaphragm which appears new as compared to the prior study and may r eflect subsegmental atelectasis or consolidation/infiltrate. No evidence for a pneumothorax. The radha ng parenchyma appears otherwise stable. IMPRESSION: In general, stable radiographic appearance of the chest with possible increase in airspace disease at the left lung base. POS: ЕЛЕНА
[2017-06-04] MEDS: Docusate Sodium 100 MG/10 ML UDCUP PO SCH ×2 (08:42→20:00)
[2017-06-04] MEDS: Linezolid 600 MG in Premix Bag 1 BAG IVPB SCH ×2 (08:42→20:52)
[2017-06-04] MEDS: Donepezil HCl 5 MG TAB PO SCH (08:43)
[2017-06-04] MEDS: Amlodipine 5 MG TAB PO SCH (08:43)
[2017-06-04] MEDS: Famotidine/PF 20 mg/2ml Vial SLOW IVP SCH ×2 (08:44→20:00)
[2017-06-04] MEDS: Sodium Chloride 0.9% 1,000 ML IV SCH ×2 (08:59→12:13)
--- NOTE | 2017-06-04 09:03 | PDOC.PN ---
- Subjective Encounter Start Date: 06/03/17 Encounter Start Time: 16:15 Pt remains intubated, drowsy and sedated now. - Objective MAR Reviewed: Yes Vital Signs & Weight: Vital Signs (12 hours) Temp Pulse Resp BP Pulse Ox 06/04/17 08:43 64 101/58 L 06/04/17 08:00 16 06/04/17 07:47 97.9 F 64 16 100 06/04/17 07:38 62 118/71 06/04/17 07:00 97.9 F 06/04/17 06:00 17 06/04/17 04:00 98.0 F 20 06/04/17 02:45 68 16 100 06/04/17 02:00 16 06/04/17 00:28 68 16 100 06/04/17 00:00 98.0 F 16 06/03/17 22:00 16 06/03/17 21:59 56 L 14 100 Weight Admit Weight 189 lb 1.6 oz Weight 194 lb 3.636 oz Most Recent Monitor Data Heart Rate from ECG 71 NIBP 101/58 NIBP BP-Mean 69 Respiration from ECG 16 SpO2 99 I&O: 06/03/17 06/04/17 06/05/17 06:59 06:59 06:59 Intake Total 1442 2745 Output Total 440 1265 75 Balance 1002 1480 -75 Result Diagrams: 06/04/17 05:35 06/04/17 05:35 Radiology Reviewed by me: Yes Phys Exam - Physical Examination Neck: no JVD Respiratory: wheezing present Cardiovascular: RRR, no significant murmur Gastrointestinal: soft, non-tender Musculoskeletal: edema present Skin: no rash, normal turgor Dx/Plan (1) Hypokalemia Code(s): E87.6 - HYPOKALEMIA Status: Acute Plan: Will do Replacement per ICU protocol. (2) PNA (pneumonia) Code(s): J18.9 - PNEUMONIA, UNSPECIFIED ORGANISM Status: Acute Qualifiers: Pneumonia type: due to unspecified organism Laterality: left Lung location: upper lobe of lung Qualified Code(s): J18.1 - Lobar pneumonia, unspecified organism Plan: Continue with IV antibitics, Improved WBC count. Pulmonary following. (3) Sepsis Code(s): A41.9 - SEPSIS, UNSPECIFIED ORGANISM Status: Acute Qualifiers: Sepsis type: sepsis due to unspecified organism Qualified Code(s): A41.9 - Sepsis, unspecified organism Plan: Continue with IV fluids, Continue with Abx IV. Dayron monitor. (4) Chest pain Code(s): R07.9 - CHEST PAIN, UNSPECIFIED Status: Resolved (5) Anxiety and depression Code(s): F41.8 - OTHER SPECIFIED ANXIETY DISORDERS Status: Resolved (6) Hypertension Code(s): I10 - ESSENTIAL (PRIMARY) HYPERTENSION Status: Chronic Qualifiers: Hypertension type: unspecified Qualified Code(s): I10 - Essential (primary ) hypertension - Plan cont current plan of care, continue antibiotics, DVT proph w/lovenox * . - Discharge Day Encounter end time: 16:45 Review of Systems - Review of Systems Other: Unable to Do ROS due to patient intubated no family around. - Medications/Allergies Allergies/Adverse Reactions: Allergies Allergy/AdvReac Type Severity Reaction Status Date / Time adhesive Allergy Verified 04/30/17 02:16 Medications: Current Medications Acetaminophen (Tylenol) 650 mg PO Q4H PRN PRN Reason: Headache/Fever or Pain Albuterol/Ipratropium (Duoneb) 3 ml NEB [id number] [facility] Last Admin: 06/04/17 07:38 Dose: 3 ml Amlodipine Besylate (Norvasc) 5 mg PO DAILY [facility] Last Admin: 06/04/17 08:43 Dose: 5 mg Aspirin (Aspirin Chewable) 81 mg PER TUBE DAILY [facility] Last Admin: 06/04/17 08:43 Dose: 81 mg Calcium Carbonate (Tums) 1,000 mg PO Q4H PRN PRN Reason: Heartburn or Indigestion Docusate Sodium (Colace Liquid) 100 mg PO BID [facility] Last Admin: 06/04/17 08:42 Dose: 100 mg Donepezil HCl (Aricept) 5 mg PO DAILY [facility] Last Admin: 06/04/17 08:43 Dose: 5 mg Escitalopram Oxalate (Lexapro) 10 mg PO HS [facility] Last Admin: 06/03/17 20:29 Dose: 10 mg Famotidine (Pepcid) 20 mg SLOW IVP Q12HR [facility] Last Admin: 06/04/17 08:44 Dose: 20 mg Ceftriaxone Sodium 2 gm/ (Sodium Chloride) 100 mls @ 200 mls/hr IVPB Q24HR [facility] Last Admin: 06/03/17 20:27 Dose: 100 mls Levofloxacin 750 mg/ Device 150 mls @ 100 mls/hr IVPB 1700 [facility] Last Admin: 06/03/17 16:43 Dose: 150 mls Linezolid 600 mg/ Device 300 mls @ 150 mls/hr IVPB 0900,2100 [facility] Last Admin: 06/04/17 08:42 Dose: 300 mls Fentanyl Citrate 2,000 mcg/ (Sodium Chloride) 100 mls @ 0 mls/hr IV INF MARY; Per Protocol PRN Reason: Protocol Stop: 07/02/17 19:00 Last Admin: 06/02/17 22:04 Dose: 100 mls Fentanyl Citrate (Fentanyl Bolus) 250 mls @ 0 mls/hr IVPB PRN PRN; As Directed PRN Reason: Breakthrough pain Stop: 07/02/17 19:00 Lorazepam (Ativan) 2 mg SLOW IVP Q2H PRN PRN Reason: Anxiety to achieve Zamorano 2-3 Stop: 07/02/17 19:00 Methylprednisolone Sodium Succinate (Solu-Medrol) 40 mg IVP Q6HR [facility] Last Admin: 06/04/17 05:30 Dose: 40 mg Morphine Sulfate (Morphine) 2 mg SLOW IVP Q2H PRN PRN Reason: Breakthrough pain Stop: 07/02/17 19:00 Discontinue Previous Narcotic Pain Medications And Benzodiazepines 1 each FS .ONE [facility] Stop: 07/02/17 19:00 Ondansetron HCl (Zofran) 4 mg IVP Q6H PRN PRN Reason: Nausea/Vomiting Propofol (Diprivan) 1,000 mg IV INF PRN; Protocol PRN Reason: TO ACHIEVE ZAMORANO SCORE 2-3 Stop: 07/02/17 19:00 Last Admin: 06/04/17 08:51 Dose: 1,000 mg Vecuronium [place] (Norcuron) 10 mg IV Q1HR PRN PRN Reason: Agitation Last Admin: 06/02/17 19:20 Dose: 10 mg
[2017-06-04 13:30] VITALS: BMI 27.1
[2017-06-04] MEDS: fentaNYL Citrate/PF 2,000 MCG in Sodium Chloride 0.9% 60 ML IV SCH (14:11)
--- NOTE | 2017-06-04 15:20 | PDOC.PN ---
- Subjective Encounter Start Date: 06/04/17 Encounter Start Time: 12:00 Patient is seen today, Intubated., Family at the bedise, discussed with them about the prognosis. Answered questions about Sepsis. - Objective MAR Reviewed: Yes Vital Signs & Weight: Vital Signs (12 hours) Temp Pulse Resp BP Pulse Ox 06/04/17 13:56 13 06/04/17 12:53 75 115/66 06/04/17 12:00 98.5 F 13 06/04/17 10:00 16 06/04/17 09:55 65 110/62 06/04/17 08:43 64 101/58 L 06/04/17 08:00 16 06/04/17 07:47 97.9 F 64 16 100 06/04/17 07:38 62 118/71 06/04/17 07:00 97.9 F 06/04/17 06:00 17 06/04/17 04:00 98.0 F 20 Weight Admit Weight 189 lb 1.6 oz Weight 194 lb 3.636 oz Most Recent Monitor Data Heart Rate from ECG 72 NIBP 104/60 NIBP BP-Mean 72 Respiration from ECG 16 SpO2 100 I&O: 06/03/17 06/04/17 06/05/17 06:59 06:59 06:59 Intake Total 1442 2745 360 Output Total 440 1265 600 Balance 1002 1480 -240 Result Diagrams: 06/04/17 05:35 06/04/17 05:35 Radiology Reviewed by me: Yes Phys Exam - Physical Examination Neck: no nodes, no JVD Respiratory: wheezing present Cardiovascular: RRR, no significant murmur Gastrointestinal: soft, non-tender Musculoskeletal: no edema Skin: no rash, normal turgor Dx/Plan (1) Hypokalemia Code(s): E87.6 - HYPOKALEMIA Status: Acute (2) PNA (pneumonia) Code(s): J18.9 - PNEUMONIA, UNSPECIFIED ORGANISM Status: Acute Qualifiers: Pneumonia type: due to unspecified organism Laterality: left Lung location: upper lobe of lung Qualified Code(s): J18.1 - Lobar pneumonia, unspecified organism (3) Sepsis Code(s): A41.9 - SEPSIS, UNSPECIFIED ORGANISM Status: Acute Qualifiers: Sepsis type: sepsis due to unspecified organism Qualified Code(s): A41.9 - Sepsis, unspecified organism (4) Hypertension Code(s): I10 - ESSENTIAL (PRIMARY) HYPERTENSION Status: Chronic Qualifiers: Hypertension type: unspecified Qualified Code(s): I10 - Essential (primary ) hypertension - Plan cont current plan of care, plan discussed w/ family, flores catheter, continue antibiotics, DVT proph w/lovenox Plan: Will continue to Monitor patient on vebntilator with the help of pulmonary, pt continuos to be septic and on IV steroids. Will continue with Lev/ Lenezolid, Rocephin, bronchocsopy showing gram positive rods, maynot be the causative organism for pneumonia, Will continue to monitor. leucocytosis from steroids likely. Discussed with Family, explained about the longer time for weaning off the vent. told them need to give sufficient time for the body to respond to tell exactly his prognosis. - Discharge Day Encounter end time: 12:30 Review of Systems - Review of Systems Other: Unable to get ROS due to sedation - Medications/Allergies Allergies/Adverse Reactions: Allergies Allergy/AdvReac Type Severity Reaction Status Date / Time adhesive Allergy Verified 04/30/17 02:16 Medications: Current Medications Acetaminophen (Tylenol) 650 mg PO Q4H PRN PRN Reason: Headache/Fever or Pain Albuterol/Ipratropium (Duoneb) 3 ml NEB [id number] [facility] Last Admin: 06/04/17 12:53 Dose: 3 ml Amlodipine Besylate (Norvasc) 5 mg PO DAILY [facility] Last Admin: 06/04/17 08:43 Dose: 5 mg Aspirin (Aspirin Chewable) 81 mg PER TUBE DAILY [facility] Last Admin: 06/04/17 08:43 Dose: 81 mg Calcium Carbonate (Tums) 1,000 mg PO Q4H PRN PRN Reason: Heartburn or Indigestion Docusate Sodium (Colace Liquid) 100 mg PO BID [facility] Last Admin: 06/04/17 08:42 Dose: 100 mg Donepezil HCl (Aricept) 5 mg PO DAILY [facility] Last Admin: 06/04/17 08:43 Dose: 5 mg Escitalopram Oxalate (Lexapro) 10 mg PO HS [facility] Last Admin: 06/03/17 20:29 Dose: 10 mg Famotidine (Pepcid) 20 mg SLOW IVP Q12HR [facility] Last Admin: 06/04/17 08:44 Dose: 20 mg Ceftriaxone Sodium 2 gm/ (Sodium Chloride) 100 mls @ 200 mls/hr IVPB Q24HR [facility] Last Admin: 06/03/17 20:27 Dose: 100 mls Levofloxacin 750 mg/ Device 150 mls @ 100 mls/hr IVPB 1700 [facility] Last Admin: 06/03/17 16:43 Dose: 150 mls Linezolid 600 mg/ Device 300 mls @ 150 mls/hr IVPB 0900,2100 [facility] Last Admin: 06/04/17 08:42 Dose: 300 mls Fentanyl Citrate 2,000 mcg/ (Sodium Chloride) 100 mls @ 0 mls/hr IV INF [facility]; Per Protocol PRN Reason: Protocol Stop: 07/02/17 19:00 Last Admin: 06/04/17 14:11 Dose: 100 mls Fentanyl Citrate (Fentanyl Bolus) 250 mls @ 0 mls/hr IVPB PRN PRN; As Directed PRN Reason: Breakthrough pain Stop: 07/02/17 19:00 Sodium Chloride (Normal Saline 0.9%) 1,000 mls @ 75 mls/hr IV .[id number] [facility] Last Admin: 06/04/17 12:13 Dose: 1,000 mls Lorazepam (Ativan) 2 mg SLOW IVP Q2H PRN PRN Reason: Anxiety to achieve Zamorano 2-3 Stop: 07/02/17 19:00 Methylprednisolone Sodium Succinate (Solu-Medrol) 40 mg IVP Q6HR [facility] Last Admin: 06/04/17 12:13 Dose: 40 mg Morphine Sulfate (Morphine) 2 mg SLOW IVP Q2H PRN PRN Reason: Breakthrough pain Stop: 07/02/17 19:00 Discontinue Previous Narcotic Pain Medications And Benzodiazepines 1 each FS .ONE [facility] Stop: 07/02/17 19:00 Ondansetron HCl (Zofran) 4 mg IVP Q6H PRN PRN Reason: Nausea/Vomiting Propofol (Diprivan) 1,000 mg IV INF PRN; Protocol PRN Reason: TO ACHIEVE ZAMORANO SCORE 2-3 Stop: 07/02/17 19:00 Last Admin: 06/04/17 13:54 Dose: 1,000 mg Vecuronium [place] (Norcuron) 10 mg IV Q1HR PRN PRN Reason: Agitation Last Admin: 06/02/17 19:20 Dose: 10 mg
[2017-06-04] MEDS ORDERED: Magnesium Oxide 400 MG TAB PO PRN ×2 (15:50)
[2017-06-04] MEDS ORDERED: CCU ELECTROLYTE REPLACEMENT PROTOCOL FS PRN (15:50)
[2017-06-04] MEDS ORDERED: Potassium Phosphate 9 MMOL in Sodium Chloride 0.9% 100 ML IVPB PRN (15:50)
[2017-06-04] MEDS ORDERED: Potassium Chloride 40 MEQ in Premix Bag 1 BAG IVPB PRN (15:50)
[2017-06-04] MEDS ORDERED: Potassium Phosphate 12 MMOL in Sodium Chloride 0.9% 250 ML 250 ML IV PRN (15:50)
[2017-06-04] MEDS ORDERED: Potassium Phosphate 15 MMOL in Sodium Chloride 0.9% 250 ML 250 ML IV PRN (15:50)
[2017-06-04] MEDS ORDERED: Potassium Chloride 40 MEQ in Sodium Chloride 0.9% 250 ML 250 ML IVPB PRN (15:50)
[2017-06-04] MEDS ORDERED: Magnesium 2 GM/NS 0.9% 100 ML 2 GM in Premix Bag 1 BAG IVPB PRN (15:50)
[2017-06-04] MEDS ORDERED: Potassium Chloride 20 MEQ TAB PO PRN (15:50)
--- NOTE | 2017-06-04 19:10 | PRG ---
DATE OF SERVICE: 06/04/2017 SUBJECTIVE: Mr. Morillo is awake and nods appropriately. OBJECTIVE: VITAL SIGNS: Heart rate 74, respiratory rate 18, blood pressure 104/60, oxygen 100%, turned his PEEP down to 7. His intake and output is positive 1480. LUNGS: His lungs are remarkable for coarse equal breath sounds. HEART: Regular rhythm. ABDOMEN: Soft. EXTREMITIES: Without asymmetry. Chest radiograph is unchanged except for slight increase in haziness in his left base, which may be a telectasis. White count 16.9, hemoglobin 12.1, platelets 236. He only has 10% bands on his peripheral smear. So dium 134, potassium 3.2, chloride 103, bicarbonate 22, BUN 24, creatinine 0.95, glucose 164. IMPRESSION: Respiratory failure associated with community-acquired pneumonia, slowly improving, is n ot weanable yet, but he is heading in that direction. We will gradually decrease ventilatory support . I met with the family and answered all their questions. Critical care time was 30 minutes.
[2017-06-04] MEDS: cefTRIAXone\\ROCEPHIN 2 GM in Sodium Chloride 0.9% 100 ML IVPB SCH (19:59)
[2017-06-04] MEDS: Escitalopram Oxalate 10 mg Tablet PO SCH (20:00)
[2017-06-05] MEDS: Propofol 1,000 MG/100 ML VIAL IV PRN ×6 (00:14→22:32)
[2017-06-05] MEDS: Sodium Chloride 0.9% 1,000 ML IV SCH ×4 (01:54→17:57)
[2017-06-05 05:19] LABS: Anion Gap 12 mmol/L (10-20); BUN (Urea Nitrogen) 23 mg/dL (8.4-25.7); Calc. Creatinine Clearance 80 mL/min (70-130); Calcium 9.1 mg/dL (7.8-10.44); Carbon Dioxide 23 mmol/L (23-31); Chloride 105 mmol/L (98-107); Estimated GFR-MDRD 80; Glucose 156 mg/dL (83-110); Potassium 3.9 mmol/L (3.5-5.1); Sodium 136 mmol/L (136-145)
[2017-06-05 05:47] LABS: Band 9 % (5-11); Hemoglobin 12.2 g/dL (14.0-18.0); Lymphocytes 4 % (21-51); MDiff Complete? YES; Macrocytosis SLIGHT = 6-15 cells (100X) (0-5/hpf); Mean Corpuscular HGB CONC 33.1 g/dL (32.0-36.0); Mean Corpuscular Hemoglobin 31.8 pg (27.0-31.0); Mean Platelet Volume 7.1 fL (7.4-10.4); Metamyelocyte 5 % (0-0); Monocytes 5 % (0-10); Myelocyte 4 % (0-0); Neutrophil 72 % (42-75); PLT Morphology Comment Appears Adequate; Platelet Count 264 thou/uL (130-400); RBC Distribution Width 12.1 % (11.5-14.5); Reactive Lymphocytes 1 % (0-10); Red Blood Cell (RBC) Count 3.83 mill/uL (4.70-6.10); White Blood Cell (WBC) Count 16.5 thou/uL (4.8-10.8)
[2017-06-05 06:49] LABS: Base Excess (BEa) 0.9 mEq/L (0 (+/-) 2.5); CO2 Tension 43.1 mmHg (35.0-45.0); Calcium, Ionized 1.3 mmol/L (1.12-1.30); Hematocrit-ABG 38.9 % (42.0-52.0); Hemoglobin (Hb) 11.8 g/dL (14.0-18.0); O2 Tension (PaO2) 105.6 mmHg (80.0-100.0); Puncture Site RRA
[2017-06-05 06:50] LABS: ALV-art Gradient 194.525 (0-20)
[2017-06-05] MEDS: Linezolid 600 MG in Premix Bag 1 BAG IVPB SCH ×2 (08:36→21:45)
[2017-06-05] MEDS: Famotidine/PF 20 mg/2ml Vial SLOW IVP SCH ×2 (08:36→20:57)
[2017-06-05] MEDS: Docusate Sodium 100 MG/10 ML UDCUP PO SCH ×2 (08:36→20:56)
[2017-06-05] MEDS: Donepezil HCl 5 MG TAB PO SCH (08:37)
[2017-06-05] MEDS: Amlodipine 5 MG TAB PO SCH (08:37)
--- NOTE | 2017-06-05 08:54 | PRG ---
DATE OF SERVICE: 06/04/2017 HISTORY: Mr. Morillo is intubated, ventilatory setting are improving. He is not on pressors and is no t tachycardic. PHYSICAL EXAMINATION: VITAL SIGNS: He has been afebrile for the past many days. BP 120/72, O2 sat 100%. HEENT: Pupils are miotic. LUNGS: With symmetric coarse breath sounds with crackles, particularly on the right side. HEART: S1, S2, regular rate. ABDOMEN: Soft. The patient will have enteric feeding started soon. EXTREMITIES: He moves extremities. LABORATORY DATA: White cell count is at 16.9, hemoglobin 12, platelets 236, 81% neutrophils, bands a re down to 10%. Chemistry with normal findings except for some slight hyponatremia and hypokalemia. Microbiology unremarkable. Respiratory cultures with mostly for upper respiratory lakes[place]ia. Repeat est x-ray with the same pattern, no infiltrates. ASSESSMENT AND DISCUSSION: Mild dementia, hypertension, bladder cancer in remission with recent epis ode of influenzae A treated, now with post-influenza pneumonia with hemorrhagic features. The patien t to continue on broad spectrum coverage and seems to be steadily improving.
[2017-06-05] MEDS ORDERED: Pancrelipase DR 12000 1 CAP FS PRN (09:01)
[2017-06-05] MEDS ORDERED: Sodium Bicarbonate Tab 325 MG TAB PER TUBE PRN (09:01)
--- NOTE | 2017-06-05 09:06 | RAD ---
SINGLE VIEW OF CHEST: Date: 06/05/17 COMPARISON: 06/04/17. HISTORY: Ventilated patient with respiratory failure. FINDINGS: Single view of the chest shows an enlarged but stable cardiomediastinal silhouette. The lines are tub es are unchanged in position. Increased interstitial lung markings are present. There is an opacity i n the right lung base which may represent a pleural effusion and adjacent atelectasis. IMPRESSION: Small right pleural effusion with adjacent atelectasis. POS: RICHARD
--- NOTE | 2017-06-05 12:27 | PRG ---
DATE OF SERVICE: 06/05/2017 SUBJECTIVE: Mr. Eliecer Morillo awakens. He moves all of his extremities to command. He appears comfo rtable. OBJECTIVE: VITAL SIGNS: His heart rate is 74, blood pressure 122/72, respiratory rate 15. LUNGS: His rhonchi improved dramatically over the last few days, he still has few on the right side. His left lung is clear. HEART: Regular rhythm. ABDOMEN: Soft and nontender. EXTREMITIES: Without asymmetry. IMAGING: Chest radiograph shows opacification at the right base. This was reviewed by me, endotracheal tube is in the proper position. LABORATORY DATA: White count 16.5, hemoglobin 12.2, platelets 264,000. Sodium 136, potassium 3.9, chloride 105, bicarbonate 23, BUN 23, creatinine 0.91, glucose 156. PH 7.4, CO2 43, pO2 105. Vent settings, blood gas for an IMV of 12, FiO2 50%, tidal volume 500, pressure support 15, PEEP of 7 . His FiO2 has been turned down to 40%. His rate has been turned down to 8. His pressure support has been turned down to 10. His PEEP has been turned down to 5. I am hoping within 24-48 hours, we can consider a spontaneous breathing trial. He has improved signi ficantly. Microbiology is reviewed. A bacillus species was isolated from one blood culture to the o ther blood culture was negative. I suspect this is a contaminant. IMPRESSION: 1. Post-flu and pneumonia. 2. Respiratory failure. 3. Retained secretions have improved dramatically. 4. Excellent premorbid health by report. Intake and output was reviewed and is positive 1262. He i s tolerating tube feeds at 20 mL an hour, hopefully we will wean this weekend. Critical care time was 30 minutes.
[2017-06-05] MEDS: fentaNYL Citrate/PF 2,000 MCG in Sodium Chloride 0.9% 60 ML IV SCH (13:16)
--- NOTE | 2017-06-05 15:23 | PDOC.PN ---
- Subjective Encounter Start Date: 06/05/17 Encounter Start Time: 14:45 Patient is seen today, Intubated and Sedated. Discussed with Family, pt is off of pressors, improving settings on vent. - Objective MAR Reviewed: Yes Vital Signs & Weight: Vital Signs (12 hours) Temp Pulse Resp BP Pulse Ox 06/05/17 14:26 68 108/61 06/05/17 13:53 15 06/05/17 13:28 74 108/62 06/05/17 11:52 98.4 F 20 06/05/17 10:37 74 112/66 06/05/17 10:00 11 L 06/05/17 08:37 74 122/72 06/05/17 08:00 14 06/05/17 07:56 65 131/87 06/05/17 07:28 98.6 F 67 12 100 06/05/17 07:00 98.6 F 06/05/17 06:00 14 06/05/17 04:00 98.2 F 14 Weight Admit Weight 189 lb 1.6 oz Weight 194 lb 14.218 oz Most Recent Monitor Data Heart Rate from ECG 82 NIBP 102/57 NIBP BP-Mean 71 Respiration from ECG 16 SpO2 98 I&O: 06/04/17 06/05/17 06/06/17 06:59 06:59 06:59 Intake Total 2745 2912 510 Output Total 1265 1650 525 Balance 1480 1262 -15 Result Diagrams: 06/05/17 04:22 06/05/17 04:22 Radiology Reviewed by me: Yes Phys Exam - Physical Examination Neck: no nodes, no JVD Respiratory: no wheezing, no rales Cardiovascular: RRR, no significant murmur Gastrointestinal: non-tender, no distention, positive bowel sounds Musculoskeletal: no edema Dx/Plan (1) Hypokalemia Code(s): E87.6 - HYPOKALEMIA Status: Acute (2) PNA (pneumonia) Code(s): J18.9 - PNEUMONIA, UNSPECIFIED ORGANISM Status: Acute Qualifiers: Pneumonia type: due to unspecified organism Laterality: left Lung location: upper lobe of lung Qualified Code(s): J18.1 - Lobar pneumonia, unspecified organism (3) Sepsis Code(s): A41.9 - SEPSIS, UNSPECIFIED ORGANISM Status: Acute Qualifiers: Sepsis type: sepsis due to unspecified organism Qualified Code(s): A41.9 - Sepsis, unspecified organism (4) Hypertension Code(s): I10 - ESSENTIAL (PRIMARY) HYPERTENSION Status: Chronic Qualifiers: Hypertension type: unspecified Qualified Code(s): I10 - Essential (primary ) hypertension - Plan . Plan: Will continue to Monitor patient on vebntilator with the help of pulmonary, pt continuos to be septic and on IV steroids., showed improvement on Vent with improved oxygenation. Will continue with Lev/ Lenezolid, Rocephin, bronchocsopy showing gram positive rods but not Anthrax type, maynot be the causative organism for pneumonia, Will continue to monitor. leucocytosis from steroids likely. Discussed with Family, explained about the longer time for weaning off the vent. told them need to give sufficient time for the body to respond to tell exactly his prognosis. Family questions answered. - Discharge Day Encounter end time: 15:15 Review of Systems - Review of Systems Other: patient Remains Intubated. - Medications/Allergies Allergies/Adverse Reactions: Allergies Allergy/AdvReac Type Severity Reaction Status Date / Time adhesive Allergy Verified 04/30/17 02:16 Medications: Current Medications Acetaminophen (Tylenol) 650 mg PO Q4H PRN PRN Reason: Headache/Fever or Pain Albuterol/Ipratropium (Duoneb) 3 ml NEB [id number] [facility] Last Admin: 06/05/17 14:26 Dose: 3 ml Amlodipine Besylate (Norvasc) 5 mg PO DAILY [facility] Last Admin: 06/05/17 08:37 Dose: 5 mg Lipase/Protease/Amylase ([place] [id number]) 1 cap FS .PER PROTOCOL PRN PRN Reason: TUBE OCCLUSION PROTOCOL Aspirin (Aspirin Chewable) 81 mg PER TUBE DAILY [facility] Last Admin: 06/05/17 08:37 Dose: 81 mg Calcium Carbonate (Tums) 1,000 mg PO Q4H PRN PRN Reason: Heartburn or Indigestion Docusate Sodium (Colace Liquid) 100 mg PO BID [facility] Last Admin: 06/05/17 08:36 Dose: 100 mg Donepezil HCl (Aricept) 5 mg PO DAILY [facility] Last Admin: 06/05/17 08:37 Dose: 5 mg Escitalopram Oxalate (Lexapro) 10 mg PO HS [facility] Last Admin: 06/04/17 20:00 Dose: 10 mg Famotidine (Pepcid) 20 mg SLOW IVP Q12HR [facility] Last Admin: 06/05/17 08:36 Dose: 20 mg Ceftriaxone Sodium 2 gm/ (Sodium Chloride) 100 mls @ 200 mls/hr IVPB Q24HR [facility] Last Admin: 06/04/17 19:59 Dose: 100 mls Levofloxacin 750 mg/ Device 150 mls @ 100 mls/hr IVPB 1700 [facility] Last Admin: 06/04/17 16:06 Dose: 150 mls Linezolid 600 mg/ Device 300 mls @ 150 mls/hr IVPB 0900,2100 [facility] Last Admin: 06/05/17 08:36 Dose: 300 mls Fentanyl Citrate 2,000 mcg/ (Sodium Chloride) 100 mls @ 0 mls/hr IV INF [facility]; Per Protocol PRN Reason: Protocol Stop: 07/02/17 19:00 Last Admin: 06/05/17 13:16 Dose: 100 mls Fentanyl Citrate (Fentanyl Bolus) 250 mls @ 0 mls/hr IVPB PRN PRN; As Directed PRN Reason: Breakthrough pain Stop: 07/02/17 19:00 Potassium Chloride 40 meq/ (Sodium Chloride) 270 mls @ 135 mls/hr IVPB ASDIR PRN PRN Reason: FOR SERUM K+ 2.5 - 3.5 Potassium Chloride 40 meq/ (Device) 100 mls @ 50 mls/hr IVPB ASDIR PRN PRN Reason: FOR SERUM K+ 2.5 - 3.5 Magnesium Sulfate 1 gm/ Sodium (Chloride) 102 mls @ 102 mls/hr IV PRN PRN PRN Reason: MAG LEVEL 1.4 - 2.0 Magnesium Sulfate 2 gm/ Device 100 mls @ 100 mls/hr IVPB ASDIR PRN PRN Reason: MAGNESIUM < 1.4 Potassium Phosphate 9 mmol/ (Sodium Chloride) 103 mls @ 25.75 mls/hr IVPB ASDIR PRN PRN Reason: Phosphate 1.0-1.8 Potassium Phosphate 12 mmol/ (Sodium Chloride) 254 mls @ 63.5 mls/hr IV ASDIR PRN PRN Reason: Serum phosphate 0.5-0.9 Potassium Phosphate 15 mmol/ (Sodium Chloride) 255 mls @ 63.75 mls/hr IV ASDIR PRN PRN Reason: Serum Phos < 0.5 Sodium Chloride (Normal Saline 0.9%) 1,000 mls @ 50 mls/hr IV .Q20H [facility] Last Admin: 06/05/17 10:11 Dose: Not Given Lorazepam (Ativan) 2 mg SLOW IVP Q2H PRN PRN Reason: Anxiety to achieve Zamorano 2-3 Stop: 07/02/17 19:00 Magnesium Oxide (Magnesium Oxide) 400 mg PO BIDPRN PRN PRN Reason: FOR SERUM MAG 1.4 - 2.0 Magnesium Oxide (Magnesium Oxide) 800 mg PO PRN PRN PRN Reason: FOR SERUM MAG < 1.4 Methylprednisolone Sodium Succinate (Solu-Medrol) 40 mg IVP Q12HR [facility] Miscellaneous Medication (Phos-Nak) 1 pkt PO TIDPRN PRN PRN Reason: FOR PHOS LEVEL 1.0 - 1.8 Miscellaneous Medication (Phos-Nak) 2 pkt PO TIDPRN PRN PRN Reason: FOR PHOS LEVEL 0.5 - 1.0 Morphine Sulfate (Morphine) 2 mg SLOW IVP Q2H PRN PRN Reason: Breakthrough pain Stop: 07/02/17 19:00 Ondansetron HCl (Zofran) 4 mg IVP Q6H PRN PRN Reason: Nausea/Vomiting Potassium Chloride (K-Dur) 40 meq PO ASDIR PRN PRN Reason: FOR SERUM K+ 2.5 - 3.5 Potassium Chloride (Klor-Con) 40 meq PER TUBE ASDIR PRN PRN Reason: FOR SERUM K+ 2.5-3.5 Last Admin: 06/04/17 16:06 Dose: 40 meq Propofol (Diprivan) 1,000 mg IV INF PRN; Protocol PRN Reason: TO ACHIEVE ZAMORANO SCORE 2-3 Stop: 07/02/17 19:00 Last Admin: 06/05/17 13:18 Dose: 1,000 mg Sodium Bicarbonate (Bicarbonate, Sodium) 650 mg PER TUBE .PER PROTOCOL PRN PRN Reason: ENTERAL TUBE OCCLUSION
[2017-06-05] MEDS: Escitalopram Oxalate 10 mg Tablet PO SCH (20:56)
[2017-06-05] MEDS: cefTRIAXone\\ROCEPHIN 2 GM in Sodium Chloride 0.9% 100 ML IVPB SCH (21:09)
[2017-06-06] MEDS: Propofol 1,000 MG/100 ML VIAL IV PRN ×3 (02:37→16:40)
[2017-06-06 03:48] LABS: Band 3 % (5-11); Hemoglobin 13.1 g/dL (14.0-18.0); Lymphocytes 3 % (21-51); MDiff Complete? YES; Mean Corpuscular HGB CONC 33.4 g/dL (32.0-36.0); Mean Corpuscular Hemoglobin 32.6 pg (27.0-31.0); Mean Corpuscular Volume 97.6 fl (80.0-94.0); Mean Platelet Volume 6.9 fL (7.4-10.4); Metamyelocyte 1 % (0-0); Monocytes 4 % (0-10); Myelocyte 1 % (0-0); Neutrophil 88 % (42-75); PLT Morphology Comment Appears Adequate; Platelet Count 278 thou/uL (130-400); RBC Distribution Width 12.4 % (11.5-14.5); Red Blood Cell (RBC) Count 4.03 mill/uL (4.70-6.10); White Blood Cell (WBC) Count 17.8 thou/uL (4.8-10.8)
[2017-06-06 03:57] LABS: Anion Gap 12 mmol/L (10-20); BUN (Urea Nitrogen) 27 mg/dL (8.4-25.7); Calc. Creatinine Clearance 75 mL/min (70-130); Calcium 9.1 mg/dL (7.8-10.44); Carbon Dioxide 25 mmol/L (23-31); Chloride 106 mmol/L (98-107); Estimated GFR-MDRD 75; Glucose 154 mg/dL (83-110); Potassium 4.7 mmol/L (3.5-5.1); Sodium 138 mmol/L (136-145)
[2017-06-06 08:33] LABS: Actual Bicarbonate (HCO3a) 26.5 mEq/L (22-26); Base Excess (BEa) 0.3 mEq/L (0 (+/-) 2.5); CO2 Tension 49.8 mmHg (35.0-45.0); Hematocrit-ABG 38.2 % (42.0-52.0); Hemoglobin (Hb) 12.4 g/dL (14.0-18.0); O2 Tension (PaO2) 78.5 mmHg (80.0-100.0); pH, Arterial 7.34 (7.35-7.45)
[2017-06-06 08:34] LABS: Calcium, Ionized 1.3 mmol/L (1.12-1.30)
[2017-06-06 08:35] LABS: Puncture Site RBA
[2017-06-06] MEDS: Amlodipine 5 MG TAB PO SCH (08:41)
[2017-06-06] MEDS: Donepezil HCl 5 MG TAB PO SCH (08:41)
[2017-06-06] MEDS: Famotidine/PF 20 mg/2ml Vial SLOW IVP SCH ×2 (08:41→20:52)
[2017-06-06] MEDS: Docusate Sodium 100 MG/10 ML UDCUP PO SCH ×2 (08:42→20:52)
[2017-06-06] MEDS: Linezolid 600 MG in Premix Bag 1 BAG IVPB SCH ×2 (08:43→20:54)
--- NOTE | 2017-06-06 08:53 | RAD ---
SEMIUPRIGHT PORTABLE CHEST 1 VIEW: Date: 06/06/17 HISTORY: 82-year-old male with respiratory insufficiency. COMPARISON: 06/05/17. FINDINGS: NG tube and endotracheal tubes remain in place. Again noted are patchy interstitial and linear opacit y changes, primarily in the perihilar regions and lower lung zones with some costophrenic angle blunt ing, stable. No new process. IMPRESSION: Stable bilateral parenchymal changes and costophrenic angle blunting. Continue short-term follow-up. POS: ЕЛЕНА
[2017-06-06] MEDS: fentaNYL Citrate/PF 2,000 MCG in Sodium Chloride 0.9% 60 ML IV SCH (10:12)
--- NOTE | 2017-06-06 12:09 | PRG ---
DATE OF SERVICE: 06/06/2017 Awake, alert, responsive, on the vent. PHYSICAL EXAMINATION: Pulse 75, blood pressure 197/75, O2 sat 100%, respirations 14, moves all 4 extr emities. His I's and O's 3069 in, 1300 out. CHEST: Chest reveals decreased breath sounds, no wheezing. CARDIAC: Normal S1, S2. No gallop. ABDOMEN: Soft. NEURO: Neurologically, he moves all 4 extremities. LABORATORY DATA: White count 17,000, H&H 13 and 39, platelet count is 278, PO2 78, PCO2 49, pH 7.34, rate of 8, 500 tidal volume. Electrolytes are normal. X-ray shows cardiomegaly, atelectasis, small pleural effusion. IMPRESSION: 1. Respiratory failure. 2. Chronic obstructive pulmonary disease. 3. Severe deconditioning. 4. Retained secretions. PLAN: PT, nutrition. Slow wean. I will follow. One-half hour critical care time.
--- NOTE | 2017-06-06 15:04 | PDOC.PN ---
- Subjective Encounter Start Date: 06/06/17 Encounter Start Time: 11:00 -: non-verbal Paitet remain intubated. - Objective MAR Reviewed: Yes Vital Signs & Weight: Vital Signs (12 hours) Temp Pulse Resp BP Pulse Ox 06/06/17 14:00 11 L 06/06/17 12:20 98.4 F 06/06/17 12:07 97 06/06/17 12:00 15 06/06/17 11:58 83 13 99 06/06/17 11:30 76 129/68 06/06/17 10:00 20 06/06/17 08:41 79 107/68 06/06/17 08:00 13 06/06/17 07:43 98.6 F 68 20 100 06/06/17 07:38 74 123/75 06/06/17 07:36 74 16 100 06/06/17 07:15 98.6 F 06/06/17 06:00 11 L 06/06/17 04:00 98.1 F 12 Weight Admit Weight 189 lb 1.6 oz Weight 197 lb 8.547 oz Most Recent Monitor Data Heart Rate from ECG 75 NIBP 109/60 NIBP BP-Mean 72 Respiration from ECG 11 SpO2 98 I&O: 06/05/17 06/06/17 06/07/17 06:59 06:59 06:59 Intake Total 2912 3609 520 Output Total 1650 1300 520 Balance 1262 2309 0 Result Diagrams: 06/06/17 03:10 06/06/17 03:10 Radiology Reviewed by me: Yes Phys Exam - Physical Examination Neck: no nodes, no JVD Respiratory: wheezing present Cardiovascular: RRR, no significant murmur, no rub Gastrointestinal: soft, non-tender, positive bowel sounds Musculoskeletal: no edema Lymphatic: no nodes Dx/Plan (1) Hypokalemia Code(s): E87.6 - HYPOKALEMIA Status: Acute (2) PNA (pneumonia) Code(s): J18.9 - PNEUMONIA, UNSPECIFIED ORGANISM Status: Acute Qualifiers: Pneumonia type: due to unspecified organism Laterality: left Lung location: upper lobe of lung Qualified Code(s): J18.1 - Lobar pneumonia, unspecified organism (3) Sepsis Code(s): A41.9 - SEPSIS, UNSPECIFIED ORGANISM Status: Acute Qualifiers: Sepsis type: sepsis due to unspecified organism Qualified Code(s): A41.9 - Sepsis, unspecified organism (4) Hypertension Code(s): I10 - ESSENTIAL (PRIMARY) HYPERTENSION Status: Chronic Qualifiers: Hypertension type: unspecified Qualified Code(s): I10 - Essential (primary ) hypertension - Plan cont current plan of care, continue antibiotics, DVT proph w/lovenox Will continue to Monitor patient on vebntilator with the help of pulmonary, pt continuos to be septic and on IV steroids., showed improvement on Vent with improved oxygenation.Pulmonary following. Will continue with Lev/ Lenezolid, Rocephin, bronchocsopy showing gram positive rods but not Anthrax type, maynot be the causative organism for pneumonia, Will continue to monitor. Chest xrasy showed persistant bilateral infiltrates. leucocytosis from steroids likely, worsening, will order Repeat Blood Cultures. DVT proiphylaxis Lovenox. - Discharge Day Encounter end time: 11:30 Review of Systems - Review of Systems Other: Remains intubated, unable to get ROS - Medications/Allergies Allergies/Adverse Reactions: Allergies Allergy/AdvReac Type Severity Reaction Status Date / Time adhesive Allergy Verified 04/30/17 02:16 Medications: Current Medications Acetaminophen (Tylenol) 650 mg PO Q4H PRN PRN Reason: Headache/Fever or Pain Albuterol/Ipratropium (Duoneb) 3 ml NEB [id number] [facility] Last Admin: 06/06/17 11:58 Dose: 3 ml Amlodipine Besylate (Norvasc) 5 mg PO DAILY [facility] Last Admin: 06/06/17 08:41 Dose: 5 mg Lipase/Protease/Amylase ([place] [id number]) 1 cap FS .PER PROTOCOL PRN PRN Reason: TUBE OCCLUSION PROTOCOL Aspirin (Aspirin Chewable) 81 mg PER TUBE DAILY [facility] Last Admin: 06/06/17 08:42 Dose: 81 mg Calcium Carbonate (Tums) 1,000 mg PO Q4H PRN PRN Reason: Heartburn or Indigestion Docusate Sodium (Colace Liquid) 100 mg PO BID [facility] Last Admin: 06/06/17 08:42 Dose: Not Given Donepezil HCl (Aricept) 5 mg PO DAILY [facility] Last Admin: 06/06/17 08:41 Dose: 5 mg Escitalopram Oxalate (Lexapro) 10 mg PO HS [facility] Last Admin: 06/05/17 20:56 Dose: 10 mg Famotidine (Pepcid) 20 mg SLOW IVP Q12HR [facility] Last Admin: 06/06/17 08:41 Dose: 20 mg Ceftriaxone Sodium 2 gm/ (Sodium Chloride) 100 mls @ 200 mls/hr IVPB Q24HR [facility] Last Admin: 06/05/17 21:09 Dose: 100 mls Levofloxacin 750 mg/ Device 150 mls @ 100 mls/hr IVPB 1700 [facility] Last Admin: 06/05/17 16:13 Dose: 150 mls Linezolid 600 mg/ Device 300 mls @ 150 mls/hr IVPB 0900,2100 [facility] Last Admin: 06/06/17 08:43 Dose: 300 mls Fentanyl Citrate 2,000 mcg/ (Sodium Chloride) 100 mls @ 0 mls/hr IV INF [facility]; Per Protocol PRN Reason: Protocol Stop: 07/02/17 19:00 Last Admin: 06/06/17 10:12 Dose: 100 mls Fentanyl Citrate (Fentanyl Bolus) 250 mls @ 0 mls/hr IVPB PRN PRN; As Directed PRN Reason: Breakthrough pain Stop: 07/02/17 19:00 Potassium Chloride 40 meq/ (Sodium Chloride) 270 mls @ 135 mls/hr IVPB ASDIR PRN PRN Reason: FOR SERUM K+ 2.5 - 3.5 Potassium Chloride 40 meq/ (Device) 100 mls @ 50 mls/hr IVPB ASDIR PRN PRN Reason: FOR SERUM K+ 2.5 - 3.5 Magnesium Sulfate 1 gm/ Sodium (Chloride) 102 mls @ 102 mls/hr IV PRN PRN PRN Reason: MAG LEVEL 1.4 - 2.0 Magnesium Sulfate 2 gm/ Device 100 mls @ 100 mls/hr IVPB ASDIR PRN PRN Reason: MAGNESIUM < 1.4 Potassium Phosphate 9 mmol/ (Sodium Chloride) 103 mls @ 25.75 mls/hr IVPB ASDIR PRN PRN Reason: Phosphate 1.0-1.8 Potassium Phosphate 12 mmol/ (Sodium Chloride) 254 mls @ 63.5 mls/hr IV ASDIR PRN PRN Reason: Serum phosphate 0.5-0.9 Potassium Phosphate 15 mmol/ (Sodium Chloride) 255 mls @ 63.75 mls/hr IV ASDIR PRN PRN Reason: Serum Phos < 0.5 Sodium Chloride (Normal Saline 0.9%) 1,000 mls @ 50 mls/hr IV .Q20H [facility] Last Admin: 06/05/17 17:57 Dose: 1,000 mls Lorazepam (Ativan) 2 mg SLOW IVP Q2H PRN PRN Reason: Anxiety to achieve Zamorano 2-3 Stop: 07/02/17 19:00 Magnesium Oxide (Magnesium Oxide) 400 mg PO BIDPRN PRN PRN Reason: FOR SERUM MAG 1.4 - 2.0 Magnesium Oxide (Magnesium Oxide) 800 mg PO PRN PRN PRN Reason: FOR SERUM MAG < 1.4 Methylprednisolone Sodium Succinate (Solu-Medrol) 40 mg IVP Q12HR [facility] Last Admin: 06/06/17 08:43 Dose: 40 mg Miscellaneous Medication (Phos-Nak) 1 pkt PO TIDPRN PRN PRN Reason: FOR PHOS LEVEL 1.0 - 1.8 Miscellaneous Medication (Phos-Nak) 2 pkt PO TIDPRN PRN PRN Reason: FOR PHOS LEVEL 0.5 - 1.0 Morphine Sulfate (Morphine) 2 mg SLOW IVP Q2H PRN PRN Reason: Breakthrough pain Stop: 07/02/17 19:00 Ondansetron HCl (Zofran) 4 mg IVP Q6H PRN PRN Reason: Nausea/Vomiting Potassium Chloride (K-Dur) 40 meq PO ASDIR PRN PRN Reason: FOR SERUM K+ 2.5 - 3.5 Potassium Chloride (Klor-Con) 40 meq PER TUBE ASDIR PRN PRN Reason: FOR SERUM K+ 2.5-3.5 Last Admin: 06/04/17 16:06 Dose: 40 meq Propofol (Diprivan) 1,000 mg IV INF PRN; Protocol PRN Reason: TO ACHIEVE ZAMORANO SCORE 2-3 Stop: 07/02/17 19:00 Last Admin: 06/06/17 08:45 Dose: 1,000 mg Sodium Bicarbonate (Bicarbonate, Sodium) 650 mg PER TUBE .PER PROTOCOL PRN PRN Reason: ENTERAL TUBE OCCLUSION
[2017-06-06] MEDS: Escitalopram Oxalate 10 mg Tablet PO SCH (20:52)
[2017-06-06] MEDS: cefTRIAXone\\ROCEPHIN 2 GM in Sodium Chloride 0.9% 100 ML IVPB SCH (20:56)
[2017-06-07 03:59] LABS: Anion Gap 11 mmol/L (10-20); BUN (Urea Nitrogen) 26 mg/dL (8.4-25.7); Calc. Creatinine Clearance 87 mL/min (70-130); Carbon Dioxide 27 mmol/L (23-31); Chloride 105 mmol/L (98-107); Estimated GFR-MDRD 88; Glucose 128 mg/dL (83-110); Potassium 5.1 mmol/L (3.5-5.1); Sodium 138 mmol/L (136-145)
[2017-06-07 05:00] LABS: Band 6 % (5-11); Hemoglobin 12.6 g/dL (14.0-18.0); Lymphocytes 11 % (21-51); MDiff Complete? YES; Mean Corpuscular HGB CONC 32.5 g/dL (32.0-36.0); Mean Corpuscular Hemoglobin 31.9 pg (27.0-31.0); Mean Platelet Volume 6.8 fL (7.4-10.4); Metamyelocyte 2 % (0-0); Monocytes 11 % (0-10); Myelocyte 1 % (0-0); Neutrophil 69 % (42-75); PLT Morphology Comment Appears Adequate; Platelet Count 298 thou/uL (130-400); RBC Distribution Width 12.5 % (11.5-14.5); Red Blood Cell (RBC) Count 3.94 mill/uL (4.70-6.10); White Blood Cell (WBC) Count 13.9 thou/uL (4.8-10.8)
[2017-06-07 08:16] LABS: pH, Arterial 7.42 (7.35-7.45)
[2017-06-07 08:17] LABS: Actual Bicarbonate (HCO3a) 27.8 mEq/L (22-26); Base Excess (BEa) 2.9 mEq/L (0 (+/-) 2.5); CO2 Tension 43.8 mmHg (35.0-45.0); Hematocrit-ABG 41.2 % (42.0-52.0); Hemoglobin (Hb) 12.6 g/dL (14.0-18.0)
[2017-06-07 08:21] LABS: Calcium, Ionized 1.3 mmol/L (1.12-1.30)
[2017-06-07 08:22] LABS: Puncture Site RBA
[2017-06-07] MEDS: Amlodipine 5 MG TAB PO SCH (08:52)
[2017-06-07] MEDS: Donepezil HCl 5 MG TAB PO SCH (08:53)
[2017-06-07] MEDS: Docusate Sodium 100 MG/10 ML UDCUP PO SCH ×2 (08:53→21:39)
[2017-06-07] MEDS: Famotidine/PF 20 mg/2ml Vial SLOW IVP SCH ×2 (08:53→21:42)
[2017-06-07] MEDS ORDERED: DC Sedation Protocol FS ONE (09:38)
--- NOTE | 2017-06-07 10:11 | RAD ---
SEMIUPRIGHT PORTABLE CHEST 1 VIEW: Date: 06/07/17 HISTORY: 82-year-old male with respiratory insufficiency. FINDINGS: NG tube and endotracheal tubes remain in place. There is some bilateral vascular congestion and patch y bilateral interstitial changes in the lower lung zones and pleural effusions. IMPRESSION: Overall stable appearance of the chest with little change from the prior study. Continue short-term f ollow-up. POS: ЕЛЕНА
[2017-06-07] MEDS: Linezolid 600 MG in Premix Bag 1 BAG IVPB SCH (10:45)
--- NOTE | 2017-06-07 13:10 | PDOC.PN ---
- Subjective Encounter Start Date: 06/07/17 Encounter Start Time: 11:00 farooq is seen today, just extubated this morning, pt is very groggy, No family members around. Patient c/o chest tightness. - Objective MAR Reviewed: Yes Vital Signs & Weight: Vital Signs (12 hours) Temp Pulse Resp BP Pulse Ox 06/07/17 09:45 69 19 95 06/07/17 08:52 97 149/91 H 06/07/17 08:00 99.1 F 06/07/17 06:59 97 139/77 06/07/17 06:57 76 8 L 100 06/07/17 06:00 12 06/07/17 04:00 97.8 F 9 L 06/07/17 03:57 77 06/07/17 02:00 10 L Weight Admit Weight 189 lb 1.6 oz Weight 198 lb 10.184 oz Most Recent Monitor Data Heart Rate from ECG 71 NIBP 150/84 NIBP BP-Mean 123 Respiration from ECG 14 SpO2 96 I&O: 06/06/17 06/07/17 06/08/17 06:59 06:59 06:59 Intake Total 3609 3896.7 Output Total 1300 1932 475 Balance 2309 1964.7 -475 Result Diagrams: 06/07/17 03:23 06/07/17 03:23 Radiology Reviewed by me: Yes Phys Exam - Physical Examination HEENT: PERRLA, moist MMs Neck: no nodes, no JVD Respiratory: no wheezing, no rales Cardiovascular: RRR, no significant murmur Gastrointestinal: soft, non-tender Musculoskeletal: no edema, pulses present Neurological: non-focal, normal sensation Psychiatric: normal affect Skin: no rash, normal turgor Dx/Plan (1) PNA (pneumonia) Code(s): J18.9 - PNEUMONIA, UNSPECIFIED ORGANISM Status: Acute Qualifiers: Pneumonia type: due to unspecified organism Laterality: left Lung location: upper lobe of lung Qualified Code(s): J18.1 - Lobar pneumonia, unspecified organism Comment: Pt extubated, Now, feeling better complains tightness all over chest. Continue IV antibitoics, WBC trending down. (2) Sepsis Code(s): A41.9 - SEPSIS, UNSPECIFIED ORGANISM Status: Acute Qualifiers: Sepsis type: sepsis due to unspecified organism Qualified Code(s): A41.9 - Sepsis, unspecified organism Comment: Sepsis is improving, Blood Cultures Repeated is no growth now. Continue IV antibitoics, (3) Hypokalemia Code(s): E87.6 - HYPOKALEMIA Status: Resolved (4) Hypertension Code(s): I10 - ESSENTIAL (PRIMARY) HYPERTENSION Status: Chronic Qualifiers: Hypertension type: unspecified Qualified Code(s): I10 - Essential (primary ) hypertension Comment: Jeevan. - Plan cont current plan of care, plan discussed w/ family, flores catheter, speech therapy, respiratory therapy, incentive spirometry, DVT proph w/SCDs * . - Discharge Day Encounter end time: 11:30 Review of Systems - Review of Systems Constitutional: weakness, malaise. negative: fever, chills, sweats, other Eyes: negative: Pain, Vision Change, Conjunctivae Inflammation, Eyelid Inflammation, Redness, Other ENT: negative: Ear Pain, Ear Discharge, Nose Pain, Nose Discharge, Nose Congestion, Mouth Pain, Mouth Swelling, Throat Pain, Throat Swelling, Other Respiratory: negative: Cough, Dry, Shortness of Breath, Hemoptysis, SOB with Excertion, Pleuritic Pain, Sputum, Wheezing Cardiovascular: chest pain. negative: palpitations, orthopnea, paroxysmal nocturnal dyspnea, edema, light headedness, other Gastrointestinal: negative: Nausea, Vomiting, Abdominal Pain, Diarrhea, Constipation, Melena, Hematochezia, Other Genitourinary: negative: Dysuria, Frequency, Incontinence, Hematuria, Retention , Other Musculoskeletal: negative: Neck Pain, Shoulder Pain, Arm Pain, Back Pain, Hand Pain, Leg Pain, Foot Pain, Other Skin: negative: Rash, Lesions, Jose, Bruising, Other Neurological: Weakness - Medications/Allergies Allergies/Adverse Reactions: Allergies Allergy/AdvReac Type Severity Reaction Status Date / Time adhesive Allergy Verified 04/30/17 02:16 Medications: Current Medications Acetaminophen (Tylenol) 650 mg PO Q4H PRN PRN Reason: Headache/Fever or Pain Albuterol/Ipratropium (Duoneb) 3 ml NEB [id number] [facility] Last Admin: 06/07/17 06:57 Dose: 3 ml Amlodipine Besylate (Norvasc) 5 mg PO DAILY [facility] Last Admin: 06/07/17 08:52 Dose: 5 mg Lipase/Protease/Amylase ([place] [id number]) 1 cap FS .PER PROTOCOL PRN PRN Reason: TUBE OCCLUSION PROTOCOL Aspirin (Aspirin Chewable) 81 mg PER TUBE DAILY [facility] Last Admin: 06/07/17 08:52 Dose: 81 mg Calcium Carbonate (Tums) 1,000 mg PO Q4H PRN PRN Reason: Heartburn or Indigestion Docusate Sodium (Colace Liquid) 100 mg PO BID [facility] Last Admin: 06/07/17 08:53 Dose: Not Given Donepezil HCl (Aricept) 5 mg PO DAILY [facility] Last Admin: 06/07/17 08:53 Dose: 5 mg Escitalopram Oxalate (Lexapro) 10 mg PO HS [facility] Last Admin: 06/06/17 20:52 Dose: 10 mg Famotidine (Pepcid) 20 mg SLOW IVP Q12HR [facility] Last Admin: 06/07/17 08:53 Dose: 20 mg Ceftriaxone Sodium 2 gm/ (Sodium Chloride) 100 mls @ 200 mls/hr IVPB Q24HR [facility] Last Admin: 06/06/17 20:56 Dose: 100 mls Potassium Chloride 40 meq/ (Sodium Chloride) 270 mls @ 135 mls/hr IVPB ASDIR PRN PRN Reason: FOR SERUM K+ 2.5 - 3.5 Potassium Chloride 40 meq/ (Device) 100 mls @ 50 mls/hr IVPB ASDIR PRN PRN Reason: FOR SERUM K+ 2.5 - 3.5 Magnesium Sulfate 1 gm/ Sodium (Chloride) 102 mls @ 102 mls/hr IV PRN PRN PRN Reason: MAG LEVEL 1.4 - 2.0 Magnesium Sulfate 2 gm/ Device 100 mls @ 100 mls/hr IVPB ASDIR PRN PRN Reason: MAGNESIUM < 1.4 Potassium Phosphate 9 mmol/ (Sodium Chloride) 103 mls @ 25.75 mls/hr IVPB ASDIR PRN PRN Reason: Phosphate 1.0-1.8 Potassium Phosphate 12 mmol/ (Sodium Chloride) 254 mls @ 63.5 mls/hr IV ASDIR PRN PRN Reason: Serum phosphate 0.5-0.9 Potassium Phosphate 15 mmol/ (Sodium Chloride) 255 mls @ 63.75 mls/hr IV ASDIR PRN PRN Reason: Serum Phos < 0.5 Sodium Chloride (Normal Saline 0.9%) 1,000 mls @ 50 mls/hr IV .Q20H [facility] Last Admin: 06/05/17 17:57 Dose: 1,000 mls Lorazepam (Ativan) 2 mg SLOW IVP Q2H PRN PRN Reason: Anxiety to achieve Zamorano 2-3 Stop: 07/02/17 19:00 Magnesium Oxide (Magnesium Oxide) 400 mg PO BIDPRN PRN PRN Reason: FOR SERUM MAG 1.4 - 2.0 Magnesium Oxide (Magnesium Oxide) 800 mg PO PRN PRN PRN Reason: FOR SERUM MAG < 1.4 Methylprednisolone Sodium Succinate (Solu-Medrol) 40 mg IVP Q12HR [facility] Last Admin: 06/07/17 08:53 Dose: 40 mg Miscellaneous Medication (Phos-Nak) 1 pkt PO TIDPRN PRN PRN Reason: FOR PHOS LEVEL 1.0 - 1.8 Miscellaneous Medication (Phos-Nak) 2 pkt PO TIDPRN PRN PRN Reason: FOR PHOS LEVEL 0.5 - 1.0 Ondansetron HCl (Zofran) 4 mg IVP Q6H PRN PRN Reason: Nausea/Vomiting Potassium Chloride (K-Dur) 40 meq PO ASDIR PRN PRN Reason: FOR SERUM K+ 2.5 - 3.5 Potassium Chloride (Klor-Con) 40 meq PER TUBE ASDIR PRN PRN Reason: FOR SERUM K+ 2.5-3.5 Last Admin: 06/04/17 16:06 Dose: 40 meq Propofol (Diprivan) 1,000 mg IV INF PRN; Protocol PRN Reason: TO ACHIEVE ZAMORANO SCORE 2-3 Stop: 07/02/17 19:00 Last Admin: 06/06/17 16:40 Dose: 1,000 mg Sodium Bicarbonate (Bicarbonate, Sodium) 650 mg PER TUBE .PER PROTOCOL PRN PRN Reason: ENTERAL TUBE OCCLUSION
--- NOTE | 2017-06-07 14:17 | PRG ---
DATE OF SERVICE: 06/07/2017 SUBJECTIVE: This morning, he is on the vent, slightly encephalopathic, but awake, responsive. He is on CPAP with good tidal volume. OBJECTIVE: VITAL SIGNS: Rate is 16, sats 98%, blood pressure 150/80, pulse 92. I's and O's 3609 in and 1300 ou t. GENERAL: His family at the bedside. He says prior to his recent illness, he was quite active. CHEST: Bilateral rhonchi. CARDIAC: Normal S1, S2, no gallops. ABDOMEN: Soft. LABORATORY DATA: White count 3.8, hemoglobin and hematocrit 12 and 38, platelet count 298. He has 6 9 segs, 6 bands, pO2 of 73, pCO2 43, pH 7.42. Electrolytes are normal. IMPRESSION: Status post influenza secondary to bilateral bronchopneumonia and respiratory failure wi th encephalopathy. PLAN: Extubate today. Continue antibiotics, nebulizer treatments, supportive care, and PT. We will follow. One-half hour critical care time.
[2017-06-07] MEDS: Escitalopram Oxalate 10 mg Tablet PO SCH (21:39)
[2017-06-07] MEDS: Sodium Chloride 0.9% 1,000 ML IV SCH (21:39)
[2017-06-07] MEDS: cefTRIAXone\\ROCEPHIN 2 GM in Sodium Chloride 0.9% 100 ML IVPB SCH (21:42)
[2017-06-08 05:35] LABS: Anion Gap 11 mmol/L (10-20); BUN (Urea Nitrogen) 23 mg/dL (8.4-25.7); Calc. Creatinine Clearance 90 mL/min (70-130); Calcium 8.7 mg/dL (7.8-10.44); Carbon Dioxide 31 mmol/L (23-31); Chloride 100 mmol/L (98-107); Estimated GFR-MDRD 90; Glucose 123 mg/dL (83-110); Potassium 4.2 mmol/L (3.5-5.1); Sodium 138 mmol/L (136-145)
[2017-06-08 05:45] LABS: Band 1 % (5-11); Lymphocytes 10 % (21-51); Metamyelocyte 3 % (0-0); Monocytes 2 % (0-10); Myelocyte 3 % (0-0)
[2017-06-08 05:49] LABS: Hemoglobin 13.5 g/dL (14.0-18.0); Mean Corpuscular HGB CONC 32.7 g/dL (32.0-36.0); Mean Corpuscular Hemoglobin 31.5 pg (27.0-31.0); Mean Corpuscular Volume 96.4 fl (80.0-94.0); Mean Platelet Volume 6.6 fL (7.4-10.4); Platelet Count 353 thou/uL (130-400); RBC Distribution Width 12.2 % (11.5-14.5); Red Blood Cell (RBC) Count 4.28 mill/uL (4.70-6.10); White Blood Cell (WBC) Count 11.5 thou/uL (4.8-10.8)
[2017-06-08 05:52] LABS: Neutrophil 81 % (42-75)
--- NOTE | 2017-06-08 08:09 | RAD ---
CHEST 1 VIEW: Date: 06/08/17 HISTORY: Dyspnea. Follow-up. COMPARISON: 06/07/17. FINDINGS: Cardiac silhouette is magnified and enlarged. Pulmonary vasculature remains engorged with patchy biba silar infiltrates similar in appearance to the previous exam. Mediastinum is midline with aortic calc ification. Dystrophic calcification just inferior to the left shoulder joint is unchanged. Endotracheal catheter and nasogastric tube are no longer visible. classroom monitor leads overlie the c hest. IMPRESSION: 1. Interval removal of the endotracheal catheter and nasogastric tube. 2. Pulmonary vascular congestion appears stable. POS: [facility]
[2017-06-08] MEDS: Amlodipine 5 MG TAB PO SCH (09:53)
[2017-06-08] MEDS: Famotidine/PF 20 mg/2ml Vial SLOW IVP SCH (09:54)
[2017-06-08] MEDS: Donepezil HCl 5 MG TAB PO SCH (09:57)
[2017-06-08] MEDS: Docusate Sodium 100 MG/10 ML UDCUP PO SCH ×3 (09:57→21:42)
--- NOTE | 2017-06-08 12:05 | PRG ---
DATE OF SERVICE: 06/08/2017 Mr. Morillo did well over the weekend. He was extubated yesterday. He has an excellent cough. He is in no distress. PHYSICAL EXAMINATION: VITAL SIGNS: Heart rate 70, respiratory rate 18, oximetry is 98 on 3 liters, blood pressure 141/84. Intake and output is negative 834. LUNGS: Lungs are remarkable for mild rhonchi on the right. His x-ray is dramatically improved amado red to last week. HEART: Regular rhythm. ABDOMEN: Soft. LABORATORY DATA: White count 11.5, hemoglobin 13.5, platelets 353. His electrolytes are normal. IMPRESSION: Pneumonia requiring intubation. PLAN: Continue physical therapy, antimicrobial care. Transfer out to a medical bed.
--- NOTE | 2017-06-08 12:51 | PDOC.PN ---
- Subjective Encounter Start Date: 06/08/17 Encounter Start Time: 10:00 Patient is up and awake, had a visitor in room, pt is feeling fine, No other [id number] snoted. he is been coughing dry. - Objective MAR Reviewed: Yes Vital Signs & Weight: Vital Signs (12 hours) Temp Pulse Resp BP Pulse Ox 06/08/17 12:00 98.2 F 06/08/17 10:44 70 17 98 06/08/17 09:53 73 132/89 06/08/17 08:00 98.1 F 73 16 98 06/08/17 07:54 73 18 95 06/08/17 07:00 98 F 06/08/17 04:00 98.5 F 06/08/17 03:49 95 Weight Admit Weight 189 lb 1.6 oz Weight 198 lb 3.2 oz Most Recent Monitor Data Heart Rate from ECG 76 NIBP 141/84 NIBP BP-Mean 104 Respiration from ECG 17 SpO2 98 I&O: 06/07/17 06/08/17 06/09/17 06:59 06:59 06:59 Intake Total 3896.7 1541 0 Output Total 1932 8345 440 Balance 1964.7 -834 -440 Result Diagrams: 06/08/17 04:00 06/08/17 04:00 Radiology Reviewed by me: Yes (persistant interstiial infiltrtae no change.) Phys Exam - Physical Examination HEENT: PERRLA, moist MMs Neck: no nodes, no JVD Respiratory: no rales, wheezing present Cardiovascular: no significant murmur, no rub Gastrointestinal: soft, non-tender Neurological: non-focal, normal sensation Psychiatric: normal affect, A&O x 3 Dx/Plan (1) PNA (pneumonia) Code(s): J18.9 - PNEUMONIA, UNSPECIFIED ORGANISM Status: Acute Qualifiers: Pneumonia type: due to unspecified organism Laterality: left Lung location: upper lobe of lung Qualified Code(s): J18.1 - Lobar pneumonia, unspecified organism Plan: Continue with IV antibiotics, repeat cultures no growth, Will continue to complete 8 days. Comment: Pt extubated, Now, feeling better complains tightness all over chest. Continue IV antibitoics, WBC trending down.Continue with IV antibiotics, repeat cultures no growth, Will continue to complete 8 days. (2) Sepsis Code(s): A41.9 - SEPSIS, UNSPECIFIED ORGANISM Status: Acute Qualifiers: Sepsis type: sepsis due to unspecified organism Qualified Code(s): A41.9 - Sepsis, unspecified organism Comment: Sepsis is improving, Blood Cultures Repeated is no growth now. Continue IV antibitoics, Continue with IV antibiotics, repeat cultures no growth , Will continue to complete 8 days. (3) Hypokalemia Code(s): E87.6 - HYPOKALEMIA Status: Resolved (4) Hypertension Code(s): I10 - ESSENTIAL (PRIMARY) HYPERTENSION Status: Chronic Qualifiers: Hypertension type: unspecified Qualified Code(s): I10 - Essential (primary ) hypertension Comment: Jeevan. 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 - Discharge Day Encounter end time: 10:35 Review of Systems - Review of Systems Constitutional: weakness Eyes: negative: Pain, Vision Change, Conjunctivae Inflammation, Eyelid Inflammation, Redness, Other ENT: negative: Ear Pain, Ear Discharge, Nose Pain, Nose Discharge, Nose Congestion, Mouth Pain, Mouth Swelling, Throat Pain, Throat Swelling, Other Respiratory: negative: Cough, Dry, Shortness of Breath, Hemoptysis, SOB with Excertion, Pleuritic Pain, Sputum, Wheezing Cardiovascular: negative: chest pain, palpitations, orthopnea, paroxysmal nocturnal dyspnea, edema, light headedness, other Gastrointestinal: negative: Nausea, Vomiting, Abdominal Pain, Diarrhea, Constipation, Melena, Hematochezia, Other Genitourinary: negative: Dysuria, Frequency, Incontinence, Hematuria, Retention , Other Musculoskeletal: negative: Neck Pain, Shoulder Pain, Arm Pain, Back Pain, Hand Pain, Leg Pain, Foot Pain, Other Skin: negative: Rash, Lesions, Jose, Bruising, Other Neurological: negative: Weakness, Numbness, Incoordination, Change in Speech, Confusion, Seizures, Other - Medications/Allergies Allergies/Adverse Reactions: Allergies Allergy/AdvReac Type Severity Reaction Status Date / Time adhesive Allergy Verified 04/30/17 02:16 Medications: Current Medications Acetaminophen (Tylenol) 650 mg PO Q4H PRN PRN Reason: Headache/Fever or Pain Albuterol/Ipratropium (Duoneb) 3 ml NEB [id number] [facility] Last Admin: 06/08/17 10:44 Dose: 3 ml Amlodipine Besylate (Norvasc) 5 mg PO DAILY [facility] Last Admin: 06/08/17 09:53 Dose: 5 mg Lipase/Protease/Amylase ([place] [id number]) 1 cap FS .PER PROTOCOL PRN PRN Reason: TUBE OCCLUSION PROTOCOL Aspirin (Aspirin Chewable) 81 mg PER TUBE DAILY [facility] Last Admin: 06/08/17 09:54 Dose: 81 mg Calcium Carbonate (Tums) 1,000 mg PO Q4H PRN PRN Reason: Heartburn or Indigestion Docusate Sodium (Colace Liquid) 100 mg PO BID [facility] Last Admin: 06/08/17 09:57 Dose: Not Given Donepezil HCl (Aricept) 5 mg PO DAILY [facility] Last Admin: 06/08/17 09:57 Dose: 5 mg Escitalopram Oxalate (Lexapro) 10 mg PO HS [facility] Last Admin: 06/07/17 21:39 Dose: Not Given Famotidine (Pepcid) 20 mg PO Q12HR [facility] Ceftriaxone Sodium 2 gm/ (Sodium Chloride) 100 mls @ 200 mls/hr IVPB Q24HR [facility] Last Admin: 06/07/17 21:42 Dose: 100 mls Potassium Chloride 40 meq/ (Sodium Chloride) 270 mls @ 135 mls/hr IVPB ASDIR PRN PRN Reason: FOR SERUM K+ 2.5 - 3.5 Potassium Chloride 40 meq/ (Device) 100 mls @ 50 mls/hr IVPB ASDIR PRN PRN Reason: FOR SERUM K+ 2.5 - 3.5 Magnesium Sulfate 1 gm/ Sodium (Chloride) 102 mls @ 102 mls/hr IV PRN PRN PRN Reason: MAG LEVEL 1.4 - 2.0 Magnesium Sulfate 2 gm/ Device 100 mls @ 100 mls/hr IVPB ASDIR PRN PRN Reason: MAGNESIUM < 1.4 Potassium Phosphate 9 mmol/ (Sodium Chloride) 103 mls @ 25.75 mls/hr IVPB ASDIR PRN PRN Reason: Phosphate 1.0-1.8 Potassium Phosphate 12 mmol/ (Sodium Chloride) 254 mls @ 63.5 mls/hr IV ASDIR PRN PRN Reason: Serum phosphate 0.5-0.9 Potassium Phosphate 15 mmol/ (Sodium Chloride) 255 mls @ 63.75 mls/hr IV ASDIR PRN PRN Reason: Serum Phos < 0.5 Sodium Chloride (Normal Saline 0.9%) 1,000 mls @ 50 mls/hr IV .Q20H [facility] Last Admin: 06/07/17 21:39 Dose: 1,000 mls Lorazepam (Ativan) 2 mg SLOW IVP Q2H PRN PRN Reason: Anxiety to achieve Zamorano 2-3 Stop: 07/02/17 19:00 Magnesium Oxide (Magnesium Oxide) 400 mg PO BIDPRN PRN PRN Reason: FOR SERUM MAG 1.4 - 2.0 Magnesium Oxide (Magnesium Oxide) 800 mg PO PRN PRN PRN Reason: FOR SERUM MAG < 1.4 Methylprednisolone Sodium Succinate (Solu-Medrol) 40 mg IVP Q12HR [facility] Last Admin: 06/08/17 09:54 Dose: 40 mg Miscellaneous Medication (Phos-Nak) 1 pkt PO TIDPRN PRN PRN Reason: FOR PHOS LEVEL 1.0 - 1.8 Miscellaneous Medication (Phos-Nak) 2 pkt PO TIDPRN PRN PRN Reason: FOR PHOS LEVEL 0.5 - 1.0 Ondansetron HCl (Zofran) 4 mg IVP Q6H PRN PRN Reason: Nausea/Vomiting Potassium Chloride (K-Dur) 40 meq PO ASDIR PRN PRN Reason: FOR SERUM K+ 2.5 - 3.5 Potassium Chloride (Klor-Con) 40 meq PER TUBE ASDIR PRN PRN Reason: FOR SERUM K+ 2.5-3.5 Last Admin: 06/04/17 16:06 Dose: 40 meq Propofol (Diprivan) 1,000 mg IV INF PRN; Protocol PRN Reason: TO ACHIEVE ZAMORANO SCORE 2-3 Stop: 07/02/17 19:00 Last Admin: 06/06/17 16:40 Dose: 1,000 mg Sodium Bicarbonate (Bicarbonate, Sodium) 650 mg PER TUBE .PER PROTOCOL PRN PRN Reason: ENTERAL TUBE OCCLUSION
[2017-06-08] MEDS: Sodium Chloride 0.9% 1,000 ML IV SCH ×2 (13:10→13:15)
[2017-06-08] MEDS ORDERED: CEFTRIAXONE 2GM/50 ML BAG 2 GM in Premix Bag 1 BAG IVPB SCH (16:00)
[2017-06-08] MEDS: Artificial Tear Sol 15 ML BOT EA EYE PRN (18:23)
[2017-06-08] MEDS: Escitalopram Oxalate 10 mg Tablet PO SCH (20:51)
[2017-06-08] MEDS: Famotidine 20 MG TAB PO SCH (20:52)
[2017-06-09 04:31] LABS: Anion Gap 12 mmol/L (10-20); BUN (Urea Nitrogen) 20 mg/dL (8.4-25.7); Calc. Creatinine Clearance 92 mL/min (70-130); Calcium 8.6 mg/dL (7.8-10.44); Carbon Dioxide 30 mmol/L (23-31); Chloride 101 mmol/L (98-107); Estimated GFR-MDRD Greater than 90; Glucose 143 mg/dL (83-110); Sodium 139 mmol/L (136-145)
[2017-06-09 05:10] LABS: Band 3 % (5-11); Hemoglobin 13.9 g/dL (14.0-18.0); Lymphocytes 12 % (21-51); MDiff Complete? YES; Macrocytosis SLIGHT = 6-15 cells (100X) (0-5/hpf); Mean Corpuscular HGB CONC 32.9 g/dL (32.0-36.0); Mean Corpuscular Hemoglobin 31.3 pg (27.0-31.0); Mean Corpuscular Volume 95.2 fl (80.0-94.0); Mean Platelet Volume 6.3 fL (7.4-10.4); Metamyelocyte 2 % (0-0); Monocytes 5 % (0-10); Neutrophil 78 % (42-75); PLT Morphology Comment Appears Adequate; Platelet Count 380 thou/uL (130-400); RBC Distribution Width 12.2 % (11.5-14.5); Red Blood Cell (RBC) Count 4.44 mill/uL (4.70-6.10); White Blood Cell (WBC) Count 8.4 thou/uL (4.8-10.8)
[2017-06-09] MEDS: Sodium Chloride 0.9% 1,000 ML IV SCH (09:22)
[2017-06-09] MEDS: Amlodipine 5 MG TAB PO SCH (09:23)
[2017-06-09] MEDS: Famotidine 20 MG TAB PO SCH ×2 (09:24→20:41)
[2017-06-09] MEDS: Donepezil HCl 5 MG TAB PO SCH (09:29)
[2017-06-09] MEDS: Docusate Sodium 100 MG/10 ML UDCUP PO SCH ×2 (09:36→20:40)
--- NOTE | 2017-06-09 12:19 | PDOC.PN ---
- Subjective Encounter Start Date: 06/09/17 Encounter Start Time: 12:18 Subjective: c/o coughing about the same.no CP/SOB -: very weak and hasn't been out of bed at all -: poor appetite because doesn't like hospital food - Objective MAR Reviewed: Yes Vital Signs & Weight: Vital Signs (12 hours) Temp Pulse Pulse Pulse Pulse Resp BP 06/09/17 11:54 97.5 F L 85 16 06/09/17 10:40 89 16 06/09/17 10:14 78 80 86 06/09/17 09:51 73 78 86 06/09/17 09:23 74 172/83 H 06/09/17 08:00 98.1 F 74 16 06/09/17 07:55 98.1 F 74 16 06/09/17 06:11 80 16 06/09/17 04:00 97.7 F 76 20 06/09/17 03:17 BP BP BP BP Pulse Ox Pulse Ox Pulse Ox 06/09/17 11:54 152/88 H 94 L 06/09/17 10:40 06/09/17 10:14 177/87 H 160/96 H 173/86 H 90 L 93 L 06/09/17 09:51 177/87 H 160/96 H 173/86 H 91 L 93 L 06/09/17 09:23 06/09/17 08:00 96 06/09/17 07:55 172/83 H 96 06/09/17 06:11 06/09/17 04:00 155/82 H 92 L 06/09/17 03:17 94 L Pulse Ox 06/09/17 11:54 06/09/17 10:40 06/09/17 10:14 96 06/09/17 09:51 96 06/09/17 09:23 06/09/17 08:00 06/09/17 07:55 06/09/17 06:11 06/09/17 04:00 06/09/17 03:17 Weight Admit Weight 189 lb 1.6 oz Weight 197 lb 11.369 oz Most Recent Monitor Data Heart Rate from ECG 76 NIBP 141/84 NIBP BP-Mean 104 Respiration from ECG 17 SpO2 98 I&O: 06/08/17 06/09/17 06/10/17 06:59 06:59 06:59 Intake Total 1541 510 Output Total 4665 3940 330 Balance -834 -3430 -330 Result Diagrams: 06/09/17 04:05 06/09/17 04:05 Additional Labs: Microbiology 06/05/17 16:40 Nasopharyngeal swab Respiratory Panel (PCR) - Final 06/03/17 17:21 Nasopharynx Influenza Types A,B Direct EIA - Final 06/02/17 18:10 Bronchial Washing - Aspirate Respiratory Culture - Final 06/02/17 00:35 Sputum Respiratory Culture - Final 06/01/17 16:33 Nasal swab Influenza Types A,B Direct EIA - Final 06/01/17 15:40 Urine voided Urine Culture - Final NO GROWTH AT 36 HOURS 06/01/17 15:36 Venous blood - Right Hand Blood Culture - Final NO GROWTH IN 5 DAYS 06/01/17 13:55 Venous blood - Right Arm Blood Culture - Final Bacillus species,NOT anthracis 06/06/17 13:12 Venous blood - Left Hand Blood Culture - Preliminary NO GROWTH AT 48 HOURS 06/06/17 13:06 Dialysis - Pending Blood Culture - Preliminary NO GROWTH AT 48 HOURS Laboratory Tests 06/03/17 06/03/17 17:21 17:21 Ur L.pneumophila Ag Negative Ur Strep pneumoniae Ag NEGATIVE Phys Exam - Physical Examination Constitutional: NAD HEENT: PERRLA, sclera anicteric, TM's clear, oral pharynx no lesions, 2+ tonsils dry mucosa Neck: no nodes, no JVD, supple, full ROM Respiratory: no wheezing, no rales, no rhonchi, clear to auscultation bilateral Cardiovascular: RRR, no significant murmur Gastrointestinal: soft, non-tender, no distention, positive bowel sounds Musculoskeletal: no edema, pulses present Neurological: non-focal, normal sensation, moves all 4 limbs Psychiatric: normal affect, A&O x 3 Skin: no rash Dx/Plan (1) Sepsis Code(s): A41.9 - SEPSIS, UNSPECIFIED ORGANISM Status: Acute Qualifiers: Sepsis type: sepsis due to unspecified organism Qualified Code(s): A41.9 - Sepsis, unspecified organism Comment: Sepsis is improving, Blood Cultures Repeated is no growth now. (2) PNA (pneumonia) Code(s): J18.9 - PNEUMONIA, UNSPECIFIED ORGANISM Status: Acute Qualifiers: Pneumonia type: due to unspecified organism Laterality: left Lung location: upper lobe of lung Qualified Code(s): J18.1 - Lobar pneumonia, unspecified organism Comment: Pt extubated, Now, feeling better. WBC trending down.repeat cultures no growth,repeat NAAT -no viruses.recent influenza,s/p tamiflu. IV ABx finished 06/09 (3) Dyslipidemia Code(s): E78.5 - HYPERLIPIDEMIA, UNSPECIFIED Status: Chronic (4) Hypertension Code(s): I10 - ESSENTIAL (PRIMARY) HYPERTENSION Status: Chronic Qualifiers: Hypertension type: unspecified Qualified Code(s): I10 - Essential (primary ) hypertension Comment: Jeevan. 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 -: meds as below.DC when placement finalize * . Review of Systems - Review of Systems Constitutional: weakness, malaise. negative: fever, chills, sweats, other Respiratory: Cough, SOB with Excertion. negative: Dry, Shortness of Breath, Hemoptysis, Pleuritic Pain, Sputum, Wheezing Cardiovascular: negative: chest pain, palpitations, orthopnea, paroxysmal nocturnal dyspnea, edema, light headedness, other Gastrointestinal: negative: Nausea, Vomiting, Abdominal Pain, Diarrhea, Constipation, Melena, Hematochezia, Other Genitourinary: negative: Dysuria, Frequency, Incontinence, Hematuria, Retention , Other Musculoskeletal: negative: Neck Pain, Shoulder Pain, Arm Pain, Back Pain, Hand Pain, Leg Pain, Foot Pain, Other Neurological: negative: Weakness, Numbness, Incoordination, Change in Speech, Confusion, Seizures, Other - Medications/Allergies Allergies/Adverse Reactions: Allergies Allergy/AdvReac Type Severity Reaction Status Date / Time adhesive Allergy Verified 04/30/17 02:16 Medications: Current Medications Acetaminophen (Tylenol) 650 mg PO Q4H PRN PRN Reason: Headache/Fever or Pain Albuterol/Ipratropium (Duoneb) 3 ml NEB [id number] [facility] Last Admin: 06/09/17 10:40 Dose: 3 ml Amlodipine Besylate (Norvasc) 5 mg PO DAILY [facility] Last Admin: 06/09/17 09:23 Dose: 5 mg Lipase/Protease/Amylase ([place] [id number]) 1 cap FS .PER PROTOCOL PRN PRN Reason: TUBE OCCLUSION PROTOCOL Artificial Tears (Tears Renewed 15ml Bottle) 2 drop EA EYE BID PRN PRN Reason: DRY EYES Last Admin: 06/08/17 18:23 Dose: 2 drop Aspirin (Aspirin Chewable) 81 mg PER TUBE DAILY [facility] Last Admin: 06/09/17 09:24 Dose: 81 mg Calcium Carbonate (Tums) 1,000 mg PO Q4H PRN PRN Reason: Heartburn or Indigestion Docusate Sodium (Colace Liquid) 100 mg PO BID [facility] Last Admin: 06/09/17 09:36 Dose: 100 mg Donepezil HCl (Aricept) 5 mg PO DAILY [facility] Last Admin: 06/09/17 09:29 Dose: 5 mg Escitalopram Oxalate (Lexapro) 10 mg PO HS [facility] Last Admin: 06/08/17 20:51 Dose: 10 mg Famotidine (Pepcid) 20 mg PO Q12HR [facility] Last Admin: 06/09/17 09:24 Dose: 20 mg Potassium Chloride 40 meq/ (Sodium Chloride) 270 mls @ 135 mls/hr IVPB ASDIR PRN PRN Reason: FOR SERUM K+ 2.5 - 3.5 Potassium Chloride 40 meq/ (Device) 100 mls @ 50 mls/hr IVPB ASDIR PRN PRN Reason: FOR SERUM K+ 2.5 - 3.5 Magnesium Sulfate 1 gm/ Sodium (Chloride) 102 mls @ 102 mls/hr IV PRN PRN PRN Reason: MAG LEVEL 1.4 - 2.0 Magnesium Sulfate 2 gm/ Device 100 mls @ 100 mls/hr IVPB ASDIR PRN PRN Reason: MAGNESIUM < 1.4 Potassium Phosphate 9 mmol/ (Sodium Chloride) 103 mls @ 25.75 mls/hr IVPB ASDIR PRN PRN Reason: Phosphate 1.0-1.8 Potassium Phosphate 12 mmol/ (Sodium Chloride) 254 mls @ 63.5 mls/hr IV ASDIR PRN PRN Reason: Serum phosphate 0.5-0.9 Potassium Phosphate 15 mmol/ (Sodium Chloride) 255 mls @ 63.75 mls/hr IV ASDIR PRN PRN Reason: Serum Phos < 0.5 Sodium Chloride (Normal Saline 0.9%) 1,000 mls @ 50 mls/hr IV .Q20H [facility] Last Admin: 06/09/17 09:22 Dose: 1,000 mls CEFTRIAXONE 2GM/50 ML BAG 2 gm (/ Device) 50 mls @ 200 mls/hr IVPB Q24HR [facility] Last Admin: 06/08/17 18:22 Dose: 50 mls Lorazepam (Ativan) 2 mg SLOW IVP Q2H PRN PRN Reason: Anxiety to achieve Zamorano 2-3 Stop: 07/02/17 19:00 Magnesium Oxide (Magnesium Oxide) 400 mg PO BIDPRN PRN PRN Reason: FOR SERUM MAG 1.4 - 2.0 Magnesium Oxide (Magnesium Oxide) 800 mg PO PRN PRN PRN Reason: FOR SERUM MAG < 1.4 Methylprednisolone Sodium Succinate (Solu-Medrol) 40 mg IVP Q12HR [facility] Last Admin: 06/09/17 09:24 Dose: 40 mg Miscellaneous Medication (Phos-Nak) 1 pkt PO TIDPRN PRN PRN Reason: FOR PHOS LEVEL 1.0 - 1.8 Miscellaneous Medication (Phos-Nak) 2 pkt PO TIDPRN PRN PRN Reason: FOR PHOS LEVEL 0.5 - 1.0 Ondansetron HCl (Zofran) 4 mg IVP Q6H PRN PRN Reason: Nausea/Vomiting Potassium Chloride (K-Dur) 40 meq PO ASDIR PRN PRN Reason: FOR SERUM K+ 2.5 - 3.5 Potassium Chloride (Klor-Con) 40 meq PER TUBE ASDIR PRN PRN Reason: FOR SERUM K+ 2.5-3.5 Last Admin: 06/04/17 16:06 Dose: 40 meq Propofol (Diprivan) 1,000 mg IV INF PRN; Protocol PRN Reason: TO ACHIEVE ZAMORANO SCORE 2-3 Stop: 07/02/17 19:00 Last Admin: 06/06/17 16:40 Dose: 1,000 mg Simvastatin (Zocor) 5 mg PO HS MARY Sodium Bicarbonate (Bicarbonate, Sodium) 650 mg PER TUBE .PER PROTOCOL PRN PRN Reason: ENTERAL TUBE OCCLUSION
--- NOTE | 2017-06-09 12:45 | PRG ---
DATE OF SERVICE: 06/09/2017 SUBJECTIVE: Mr. Morillo is doing well. He is ambulating in the [facility] now and wants to go directly home . His wants him to go to rehabilitation. OBJECTIVE: VITAL SIGNS: He is afebrile, heart rate is 85, respiratory rate 16. He is on 3-1/2 liters, oximetry is 94; blood pressure 152/88. LUNGS: Still remarkable for crackles on the right, but his lung exam is improving every day. LABORATORY DATA: White count 8.4, hemoglobin 13.9, platelets 380. Sodium 139, potassium 4, chloride 101, bicarb 30, BUN 20, creatinine 0.8, glucose 143. IMPRESSION: Pneumonia with respiratory failure, status post several days of intubation, clinically d oing well. His IV antibiotics can be switched to p.o. No proven benefit to ongoing IV antibiotics i n this setting. His steroids can be cut to p.o. steroids as well. For some reason, propofol still o n his MAR, so this has been discontinued.
[2017-06-09] MEDS: Artificial Tear Sol 15 ML BOT EA EYE PRN (16:54)
[2017-06-09] MEDS: guaiFENesin ER 600 MG TAB PO SCH ×2 (16:55→20:41)
[2017-06-09] MEDS: Escitalopram Oxalate 10 mg Tablet PO SCH (20:40)
[2017-06-09] MEDS: Cefdinir 300 MG CAP PO SCH (20:40)
[2017-06-09] MEDS: Simvastatin 5 MG TAB PO SCH (20:42)
[2017-06-10] MEDS: Acetaminophen 325 MG TAB PO PRN ×2 (00:39→04:31)
[2017-06-10] MEDS ORDERED: Lidocaine 5% Patch TD SCH (00:45)
[2017-06-10 01:04] LABS: Troponin I 0.025 ng/mL (< 0.028)
[2017-06-10 05:57] LABS: Band 2 % (5-11); Eosinophils 1 % (0-10); Hemoglobin 12.9 g/dL (14.0-18.0); Lymphocytes 13 % (21-51); MDiff Complete? YES; Mean Corpuscular HGB CONC 33.6 g/dL (32.0-36.0); Mean Corpuscular Volume 95.1 fl (80.0-94.0); Mean Platelet Volume 6.4 fL (7.4-10.4); Monocytes 8 % (0-10); Neutrophil 76 % (42-75); PLT Morphology Comment Appears Adequate; Platelet Count 341 thou/uL (130-400); Red Blood Cell (RBC) Count 4.03 mill/uL (4.70-6.10); White Blood Cell (WBC) Count 14.2 thou/uL (4.8-10.8)
[2017-06-10 06:17] LABS: Anion Gap 11 mmol/L (10-20); BUN (Urea Nitrogen) 17 mg/dL (8.4-25.7); Calc. Creatinine Clearance 92 mL/min (70-130); Calcium 8.5 mg/dL (7.8-10.44); Carbon Dioxide 30 mmol/L (23-31); Chloride 99 mmol/L (98-107); Estimated GFR-MDRD Greater than 90; Glucose 98 mg/dL (83-110); Potassium 3.6 mmol/L (3.5-5.1); Sodium 136 mmol/L (136-145)
[2017-06-10] MEDS: Cefdinir 300 MG CAP PO SCH ×2 (09:17→20:57)
[2017-06-10] MEDS: predniSONE 20 MG TAB PO SCH (09:18)
[2017-06-10] MEDS: Amlodipine 5 MG TAB PO SCH (09:18)
[2017-06-10] MEDS: Famotidine 20 MG TAB PO SCH ×2 (09:19→20:57)
[2017-06-10] MEDS: guaiFENesin ER 600 MG TAB PO SCH ×3 (09:19→20:57)
[2017-06-10] MEDS: Docusate Sodium 100 MG/10 ML UDCUP PO SCH ×2 (09:20→20:56)
[2017-06-10] MEDS: Donepezil HCl 5 MG TAB PO SCH (09:21)
--- NOTE | 2017-06-10 10:08 | PRG ---
DATE OF SERVICE: 06/10/2017 Eliecer Morillo continues to improve. PHYSICAL EXAMINATION: VITAL SIGNS: He is afebrile. Heart rate 68. Blood pressure 140/67, respiratory rate is 14, tempera ture 98.2. LUNGS: Remarkable for crackles at his right base. CARDIOVASCULAR: Regular rhythm. ABDOMEN: Soft. IMPRESSION: 1. Pneumonia with respiratory failure, clinically stable. 2. Deconditioning after his critical illness. He is very upset because he gets awakened at night. His daughter apparently requested the nurses wak e him up to check his oximetry, worrying that he may get hypoxia during sleep. I had multiple discus sions when he is in the ICU about just random oximetry checks both at home and in the hospital. I think he is stable to go to rehab. We will continue with current care.
[2017-06-10] MEDS: Lidocaine Patch Removal 1 EACH TOP SCH (12:45)
--- NOTE | 2017-06-10 12:52 | PDOC.PN ---
- Subjective Encounter Start Date: 06/10/17 Encounter Start Time: 12:50 Subjective: feels better. didnt sleep much due to laxatives - Objective MAR Reviewed: Yes Vital Signs & Weight: Vital Signs (12 hours) Temp Pulse Resp BP BP BP Pulse Ox 06/10/17 12:33 97.8 F 63 16 187/85 H 92 L 06/10/17 09:18 68 148/67 H 06/10/17 08:00 97.5 F L 68 14 92 L 06/10/17 07:55 97.5 F L 68 14 148/67 H 92 L 06/10/17 06:12 72 16 06/10/17 05:01 162/80 H 06/10/17 04:45 96 06/10/17 04:00 97.2 F L 59 L 16 183/85 H 95 Weight Admit Weight 189 lb 1.6 oz Weight 195 lb Most Recent Monitor Data Heart Rate from ECG 76 NIBP 141/84 NIBP BP-Mean 104 Respiration from ECG 17 SpO2 98 I&O: 06/09/17 06/10/17 06/11/17 06:59 06:59 06:59 Intake Total 510 1150 Output Total 3940 1930 Balance -3430 -780 Result Diagrams: 06/10/17 05:33 06/10/17 05:33 Additional Labs: Microbiology 06/05/17 16:40 Nasopharyngeal swab Respiratory Panel (PCR) - Final 06/03/17 17:21 Nasopharynx Influenza Types A,B Direct EIA - Final 06/02/17 18:10 Bronchial Washing - Aspirate Respiratory Culture - Final 06/02/17 00:35 Sputum Respiratory Culture - Final 06/01/17 16:33 Nasal swab Influenza Types A,B Direct EIA - Final 06/01/17 15:40 Urine voided Urine Culture - Final NO GROWTH AT 36 HOURS 06/01/17 15:36 Venous blood - Right Hand Blood Culture - Final NO GROWTH IN 5 DAYS 06/01/17 13:55 Venous blood - Right Arm Blood Culture - Final Bacillus species,NOT anthracis 06/06/17 13:12 Venous blood - Left Hand Blood Culture - Preliminary NO GROWTH AT 48 HOURS 06/06/17 13:06 Dialysis - Pending Blood Culture - Preliminary NO GROWTH AT 48 HOURS Phys Exam - Physical Examination Constitutional: NAD HEENT: PERRLA, moist MMs, sclera anicteric, oral pharynx no lesions Neck: no nodes, no JVD, supple, full ROM Respiratory: no wheezing, no rales, no rhonchi, clear to auscultation bilateral Cardiovascular: RRR, no significant murmur, no rub, gallop Gastrointestinal: soft, non-tender, no distention, positive bowel sounds Musculoskeletal: no edema, pulses present Neurological: non-focal, normal sensation, moves all 4 limbs Psychiatric: normal affect, A&O x 3 Skin: no rash Dx/Plan (1) Sepsis Code(s): A41.9 - SEPSIS, UNSPECIFIED ORGANISM Status: Acute Qualifiers: Sepsis type: sepsis due to unspecified organism Qualified Code(s): A41.9 - Sepsis, unspecified organism Comment: Sepsis is improving, Blood Cultures Repeated is no growth now. (2) PNA (pneumonia) Code(s): J18.9 - PNEUMONIA, UNSPECIFIED ORGANISM Status: Acute Qualifiers: Pneumonia type: due to unspecified organism Laterality: left Lung location: upper lobe of lung Qualified Code(s): J18.1 - Lobar pneumonia, unspecified organism Comment: Pt extubated, Now, feeling better. WBC trending down.repeat cultures no growth,repeat NAAT -no viruses.recent influenza,s/p tamiflu. IV ABx finished 06/09 (3) Dyslipidemia Code(s): E78.5 - HYPERLIPIDEMIA, UNSPECIFIED Status: Chronic (4) Hypertension Code(s): I10 - ESSENTIAL (PRIMARY) HYPERTENSION Status: Chronic Qualifiers: Hypertension type: unspecified Qualified Code(s): I10 - Essential (primary ) hypertension Comment: Jeevan. 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 -: HD stable. -: PCCM following -: am labs * . Review of Systems - Review of Systems Constitutional: weakness, malaise. negative: fever, chills, sweats, other Respiratory: Cough. negative: Dry, Shortness of Breath, Hemoptysis, SOB with Excertion, Pleuritic Pain, Sputum, Wheezing Cardiovascular: negative: chest pain, palpitations, orthopnea, paroxysmal nocturnal dyspnea, edema, light headedness, other Gastrointestinal: negative: Nausea, Vomiting, Abdominal Pain, Diarrhea, Constipation, Melena, Hematochezia, Other Genitourinary: negative: Dysuria, Frequency, Incontinence, Hematuria, Retention , Other Musculoskeletal: negative: Neck Pain, Shoulder Pain, Arm Pain, Back Pain, Hand Pain, Leg Pain, Foot Pain, Other Neurological: negative: Weakness, Numbness, Incoordination, Change in Speech, Confusion, Seizures, Other - Medications/Allergies Allergies/Adverse Reactions: Allergies Allergy/AdvReac Type Severity Reaction Status Date / Time adhesive Allergy Verified 04/30/17 02:16 Medications: Current Medications Acetaminophen (Tylenol) 650 mg PO Q4H PRN PRN Reason: Headache/Fever or Pain Last Admin: 06/10/17 04:31 Dose: 650 mg Albuterol/Ipratropium (Duoneb) 3 ml NEB [id number] [facility] Last Admin: 06/10/17 09:58 Dose: Not Given Amlodipine Besylate (Norvasc) 5 mg PO DAILY [facility] Last Admin: 06/10/17 09:18 Dose: 5 mg Lipase/Protease/Amylase ([place] [id number]) 1 cap FS .PER PROTOCOL PRN PRN Reason: TUBE OCCLUSION PROTOCOL Artificial Tears (Tears Renewed 15ml Bottle) 2 drop EA EYE BID PRN PRN Reason: DRY EYES Last Admin: 06/09/17 16:54 Dose: 2 drop Aspirin (Aspirin Chewable) 81 mg PER TUBE DAILY [facility] Last Admin: 06/10/17 09:20 Dose: 81 mg Calcium Carbonate (Tums) 1,000 mg PO Q4H PRN PRN Reason: Heartburn or Indigestion Cefdinir (Omnicef) 300 mg PO BID [facility] Last Admin: 06/10/17 09:17 Dose: 300 mg Docusate Sodium (Colace Liquid) 100 mg PO BID [facility] Last Admin: 06/10/17 09:20 Dose: Not Given Donepezil HCl (Aricept) 5 mg PO DAILY [facility] Last Admin: 06/10/17 09:21 Dose: 5 mg Escitalopram Oxalate (Lexapro) 10 mg PO HS [facility] Last Admin: 06/09/17 20:40 Dose: 10 mg Famotidine (Pepcid) 20 mg PO Q12HR [facility] Last Admin: 06/10/17 09:19 Dose: 20 mg Guaifenesin (Mucinex) 1,200 mg PO Q12HR [facility] Last Admin: 06/10/17 09:20 Dose: 1,200 mg Potassium Chloride 40 meq/ (Sodium Chloride) 270 mls @ 135 mls/hr IVPB ASDIR PRN PRN Reason: FOR SERUM K+ 2.5 - 3.5 Potassium Chloride 40 meq/ (Device) 100 mls @ 50 mls/hr IVPB ASDIR PRN PRN Reason: FOR SERUM K+ 2.5 - 3.5 Magnesium Sulfate 1 gm/ Sodium (Chloride) 102 mls @ 102 mls/hr IV PRN PRN PRN Reason: MAG LEVEL 1.4 - 2.0 Magnesium Sulfate 2 gm/ Device 100 mls @ 100 mls/hr IVPB ASDIR PRN PRN Reason: MAGNESIUM < 1.4 Potassium Phosphate 9 mmol/ (Sodium Chloride) 103 mls @ 25.75 mls/hr IVPB ASDIR PRN PRN Reason: Phosphate 1.0-1.8 Potassium Phosphate 12 mmol/ (Sodium Chloride) 254 mls @ 63.5 mls/hr IV ASDIR PRN PRN Reason: Serum phosphate 0.5-0.9 Potassium Phosphate 15 mmol/ (Sodium Chloride) 255 mls @ 63.75 mls/hr IV ASDIR PRN PRN Reason: Serum Phos < 0.5 Sodium Chloride (Normal Saline 0.9%) 1,000 mls @ 50 mls/hr IV .Q20H [facility] Last Admin: 06/09/17 09:22 Dose: 1,000 mls Lidocaine (Lidoderm 5% Patch) 1 patch TD 2359 ONE Stop: 06/11/17 00:00 Magnesium Oxide (Magnesium Oxide) 400 mg PO BIDPRN PRN PRN Reason: FOR SERUM MAG 1.4 - 2.0 Magnesium Oxide (Magnesium Oxide) 800 mg PO PRN PRN PRN Reason: FOR SERUM MAG < 1.4 Miscellaneous Medication (Phos-Nak) 1 pkt PO TIDPRN PRN PRN Reason: FOR PHOS LEVEL 1.0 - 1.8 Miscellaneous Medication (Phos-Nak) 2 pkt PO TIDPRN PRN PRN Reason: FOR PHOS LEVEL 0.5 - 1.0 Miscellaneous Medication (Lidocaine Patch Removal) 1 each TOP 1200 MARY Ondansetron HCl (Zofran) 4 mg IVP Q6H PRN PRN Reason: Nausea/Vomiting Potassium Chloride (K-Dur) 40 meq PO ASDIR PRN PRN Reason: FOR SERUM K+ 2.5 - 3.5 Potassium Chloride (Klor-Con) 40 meq PER TUBE ASDIR PRN PRN Reason: FOR SERUM K+ 2.5-3.5 Last Admin: 06/04/17 16:06 Dose: 40 meq Prednisone (Prednisone) 20 mg PO QAM-WM [facility] Last Admin: 06/10/17 09:18 Dose: 20 mg Simvastatin (Zocor) 5 mg PO HS [facility] Last Admin: 06/09/17 20:42 Dose: 5 mg
[2017-06-10] MEDS: Escitalopram Oxalate 10 mg Tablet PO SCH (20:57)
[2017-06-10] MEDS: Simvastatin 5 MG TAB PO SCH (20:57)
[2017-06-10] MEDS ORDERED: Lidocaine 5% Patch TD ONE (23:59)
--- NOTE | 2017-06-11 00:51 | EKG ---
Test Reason : STAT Blood Pressure : / mmHG Vent. Rate : 066 BPM Atrial Rate : 066 BPM P-R Int : 214 ms QRS Dur : 088 ms QT Int : 404 ms P-R-T Axes : 048 014 013 degrees QTc Int : 423 ms Sinus rhythm with 1st degree A-V block Otherwise normal ECG Confirmed by DALLIN COLLINS, DR. Chris ([id number]) on 06/11/2017 12:51:16 AM Referred By: MADISYN Confirmed By:DR. Dot ZAMARRIPA MD
[2017-06-11] MEDS: Sodium Chloride 0.9% 1,000 ML IV SCH (04:47)
[2017-06-11 05:55] LABS: Anion Gap 11 mmol/L (10-20); BUN (Urea Nitrogen) 15 mg/dL (8.4-25.7); Calc. Creatinine Clearance 94 mL/min (70-130); Calcium 8.5 mg/dL (7.8-10.44); Carbon Dioxide 27 mmol/L (23-31); Chloride 99 mmol/L (98-107); Estimated GFR-MDRD Greater than 90; Glucose 99 mg/dL (83-110); Potassium 3.1 mmol/L (3.5-5.1); Sodium 134 mmol/L (136-145)
[2017-06-11 06:32] LABS: Hemoglobin 13.1 g/dL (14.0-18.0); Mean Corpuscular HGB CONC 32.2 g/dL (32.0-36.0); Mean Corpuscular Hemoglobin 30.4 pg (27.0-31.0); Mean Corpuscular Volume 94.1 fl (80.0-94.0); Mean Platelet Volume 6.5 fL (7.4-10.4); Platelet Count 359 thou/uL (130-400); RBC Distribution Width 12.2 % (11.5-14.5); White Blood Cell (WBC) Count 14.7 thou/uL (4.8-10.8)
[2017-06-11 07:02] LABS: Band 3 % (5-11); Eosinophils 2 % (0-10); Lymphocytes 11 % (21-51); MDiff Complete? YES; Metamyelocyte 1 % (0-0); Monocytes 11 % (0-10); Neutrophil 66 % (42-75); RBC Morphology Normal; Reactive Lymphocytes 6 % (0-10)
[2017-06-11] MEDS: guaiFENesin ER 600 MG TAB PO SCH ×2 (08:50→21:08)
[2017-06-11] MEDS: Amlodipine 5 MG TAB PO SCH (08:50)
[2017-06-11] MEDS: Famotidine 20 MG TAB PO SCH ×2 (08:50→21:08)
[2017-06-11] MEDS: Cefdinir 300 MG CAP PO SCH (08:50)
[2017-06-11] MEDS: predniSONE 20 MG TAB PO SCH (08:51)
[2017-06-11] MEDS: Docusate Sodium 100 MG/10 ML UDCUP PO SCH ×2 (08:51→19:52)
[2017-06-11] MEDS ORDERED: Potassium Chloride 20 MEQ TAB PO SCH (09:30)
--- NOTE | 2017-06-11 10:29 | PRG ---
DATE OF SERVICE: 06/11/2017 Mr. Morillo says he gets stronger every day. PHYSICAL EXAMINATION: VITAL SIGNS: His heart rate is 80, blood pressure 167/81, respiratory rate 20, oximetry is 96 on 2 l iters. LUNGS: Remarkable for crackles at his right base, clear anteriorly now. HEART: Regular rhythm. ABDOMEN: Soft. LABORATORY DATA: White count 14.7, hemoglobin 13.1, platelets 359. Sodium 134, potassium 3.1, chloride 99, bicarbonate 27, BUN 15, creatinine 0.77. IMPRESSION: 1. Respiratory failure with pneumonia. I suspect this was pneumococcal pneumonia. 2. Pre-illness excellent physical condition which is leading to a rapid recovery. I have reviewed his medications. He was admitted on and has had 10 days of antibiotics s o we can stop his antimicrobial therapy at this point. We can also stop his prednisone at this point . He will continue physical therapy. We are awaiting placement in a bed at the [facility] or in a skilled bed. His tells me that the insurance has approved placement.
[2017-06-11] MEDS: Donepezil HCl 5 MG TAB PO SCH (11:09)
[2017-06-11] MEDS: Lidocaine Patch Removal 1 EACH TOP SCH (13:31)
--- NOTE | 2017-06-11 13:35 | PDOC.PN ---
- Subjective Encounter Start Date: 06/11/17 Encounter Start Time: 13:34 Subjective: feels much better. still very weak. -: care discussed with - Objective MAR Reviewed: Yes Vital Signs & Weight: Vital Signs (12 hours) Temp Pulse Resp BP BP BP Pulse Ox 06/11/17 12:57 97.7 F 91 18 129/74 96 06/11/17 10:05 96 06/11/17 10:04 80 20 96 06/11/17 08:50 71 167/81 H 06/11/17 08:01 98.5 F 80 20 167/81 H 94 L 06/11/17 06:00 148/78 H 06/11/17 03:44 98.9 F 76 16 175/83 H 95 Weight Admit Weight 189 lb 1.6 oz Weight 195 lb Most Recent Monitor Data Heart Rate from ECG 76 NIBP 141/84 NIBP BP-Mean 104 Respiration from ECG 17 SpO2 98 I&O: 06/10/17 06/11/17 06/12/17 06:59 06:59 06:59 Intake Total 1150 981 Output Total 1930 800 Balance -780 181 Result Diagrams: 06/11/17 05:21 06/11/17 05:21 Additional Labs: Microbiology 06/05/17 16:40 Nasopharyngeal swab Respiratory Panel (PCR) - Final 06/03/17 17:21 Nasopharynx Influenza Types A,B Direct EIA - Final 06/02/17 18:10 Bronchial Washing - Aspirate Respiratory Culture - Final 06/02/17 00:35 Sputum Respiratory Culture - Final 06/01/17 16:33 Nasal swab Influenza Types A,B Direct EIA - Final 06/01/17 15:40 Urine voided Urine Culture - Final NO GROWTH AT 36 HOURS 06/01/17 15:36 Venous blood - Right Hand Blood Culture - Final NO GROWTH IN 5 DAYS 06/01/17 13:55 Venous blood - Right Arm Blood Culture - Final Bacillus species,NOT anthracis 06/06/17 13:12 Venous blood - Left Hand Blood Culture - Preliminary NO GROWTH AT 48 HOURS 06/06/17 13:06 Dialysis - Pending Blood Culture - Preliminary NO GROWTH AT 48 HOURS Radiology Reviewed by me: Yes EKG Reviewed by me: Yes Phys Exam - Physical Examination Constitutional: NAD HEENT: PERRLA, moist MMs, sclera anicteric, oral pharynx no lesions Neck: no nodes, no JVD, supple, full ROM Respiratory: no wheezing, no rales, no rhonchi, clear to auscultation bilateral Cardiovascular: RRR, no significant murmur, no rub, gallop Gastrointestinal: soft, non-tender, no distention, positive bowel sounds Musculoskeletal: no edema, pulses present Neurological: non-focal, normal sensation, moves all 4 limbs Psychiatric: normal affect, A&O x 3 Skin: no rash Dx/Plan (1) Sepsis Code(s): A41.9 - SEPSIS, UNSPECIFIED ORGANISM Status: Acute Qualifiers: Sepsis type: sepsis due to unspecified organism Qualified Code(s): A41.9 - Sepsis, unspecified organism Comment: Sepsis is improving, Blood Cultures Repeated is no growth now. (2) PNA (pneumonia) Code(s): J18.9 - PNEUMONIA, UNSPECIFIED ORGANISM Status: Acute Qualifiers: Pneumonia type: due to unspecified organism Laterality: left Lung location: upper lobe of lung Qualified Code(s): J18.1 - Lobar pneumonia, unspecified organism Comment: Pt extubated, Now, feeling better. WBC trending down.repeat cultures no growth,repeat NAAT -no viruses.recent influenza,s/p tamiflu. IV ABx finished 06/09 (3) Dyslipidemia Code(s): E78.5 - HYPERLIPIDEMIA, UNSPECIFIED Status: Chronic (4) Hypertension Code(s): I10 - ESSENTIAL (PRIMARY) HYPERTENSION Status: Chronic Qualifiers: Hypertension type: unspecified Qualified Code(s): I10 - Essential (primary ) hypertension Comment: Jeevan. 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 -: Ready for DC to rehab when accepted. -: monitor BP. bartolome need addition of another anti-hypertensive.cont norvasc -: cont statin * . Review of Systems - Review of Systems Constitutional: weakness, malaise. negative: fever, chills, sweats, other ENT: negative: Ear Pain, Ear Discharge, Nose Pain, Nose Discharge, Nose Congestion, Mouth Pain, Mouth Swelling, Throat Pain, Throat Swelling, Other Respiratory: negative: Cough, Dry, Shortness of Breath, Hemoptysis, SOB with Excertion, Pleuritic Pain, Sputum, Wheezing Cardiovascular: negative: chest pain, palpitations, orthopnea, paroxysmal nocturnal dyspnea, edema, light headedness, other Gastrointestinal: negative: Nausea, Vomiting, Abdominal Pain, Diarrhea, Constipation, Melena, Hematochezia, Other Genitourinary: negative: Dysuria, Frequency, Incontinence, Hematuria, Retention , Other Musculoskeletal: negative: Neck Pain, Shoulder Pain, Arm Pain, Back Pain, Hand Pain, Leg Pain, Foot Pain, Other Neurological: negative: Weakness, Numbness, Incoordination, Change in Speech, Confusion, Seizures, Other - Medications/Allergies Allergies/Adverse Reactions: Allergies Allergy/AdvReac Type Severity Reaction Status Date / Time adhesive Allergy Verified 04/30/17 02:16 Medications: Current Medications Acetaminophen (Tylenol) 650 mg PO Q4H PRN PRN Reason: Headache/Fever or Pain Last Admin: 06/10/17 04:31 Dose: 650 mg Albuterol/Ipratropium (Duoneb) 3 ml NEB [id number] [facility] Last Admin: 06/11/17 10:04 Dose: 3 ml Amlodipine Besylate (Norvasc) 5 mg PO DAILY [facility] Last Admin: 06/11/17 08:50 Dose: 5 mg Lipase/Protease/[place]ylase ([place] [id number]) 1 cap FS .PER PROTOCOL PRN PRN Reason: TUBE OCCLUSION PROTOCOL Artificial Tears (Tears Renewed 15ml Bottle) 2 drop EA EYE BID PRN PRN Reason: DRY EYES Last Admin: 06/09/17 16:54 Dose: 2 drop Aspirin (Aspirin Chewable) 81 mg PER TUBE DAILY [facility] Last Admin: 06/11/17 08:50 Dose: 81 mg Calcium Carbonate (Tums) 1,000 mg PO Q4H PRN PRN Reason: Heartburn or Indigestion Docusate Sodium (Colace Liquid) 100 mg PO BID [facility] Last Admin: 06/11/17 08:51 Dose: Not Given Donepezil HCl (Aricept) 5 mg PO DAILY [facility] Last Admin: 06/11/17 11:09 Dose: 5 mg Escitalopram Oxalate (Lexapro) 10 mg PO HS [facility] Last Admin: 06/10/17 20:57 Dose: 10 mg Famotidine (Pepcid) 20 mg PO Q12HR [facility] Last Admin: 06/11/17 08:50 Dose: 20 mg Guaifenesin (Mucinex) 1,200 mg PO Q12HR [facility] Last Admin: 06/11/17 08:50 Dose: 1,200 mg Potassium Chloride 40 meq/ (Sodium Chloride) 270 mls @ 135 mls/hr IVPB ASDIR PRN PRN Reason: FOR SERUM K+ 2.5 - 3.5 Potassium Chloride 40 meq/ (Device) 100 mls @ 50 mls/hr IVPB ASDIR PRN PRN Reason: FOR SERUM K+ 2.5 - 3.5 Magnesium Sulfate 1 gm/ Sodium (Chloride) 102 mls @ 102 mls/hr IV PRN PRN PRN Reason: MAG LEVEL 1.4 - 2.0 Magnesium Sulfate 2 gm/ Device 100 mls @ 100 mls/hr IVPB ASDIR PRN PRN Reason: MAGNESIUM < 1.4 Potassium Phosphate 9 mmol/ (Sodium Chloride) 103 mls @ 25.75 mls/hr IVPB ASDIR PRN PRN Reason: Phosphate 1.0-1.8 Potassium Phosphate 12 mmol/ (Sodium Chloride) 254 mls @ 63.5 mls/hr IV ASDIR PRN PRN Reason: Serum phosphate 0.5-0.9 Potassium Phosphate 15 mmol/ (Sodium Chloride) 255 mls @ 63.75 mls/hr IV ASDIR PRN PRN Reason: Serum Phos < 0.5 Sodium Chloride (Normal Saline 0.9%) 1,000 mls @ 50 mls/hr IV .Q20H [facility] Last Admin: 06/11/17 04:47 Dose: Not Given Magnesium Oxide (Magnesium Oxide) 400 mg PO BIDPRN PRN PRN Reason: FOR SERUM MAG 1.4 - 2.0 Magnesium Oxide (Magnesium Oxide) 800 mg PO PRN PRN PRN Reason: FOR SERUM MAG < 1.4 Miscellaneous Medication (Phos-Nak) 1 pkt PO TIDPRN PRN PRN Reason: FOR PHOS LEVEL 1.0 - 1.8 Miscellaneous Medication (Phos-Nak) 2 pkt PO TIDPRN PRN PRN Reason: FOR PHOS LEVEL 0.5 - 1.0 Miscellaneous Medication (Lidocaine Patch Removal) 1 each TOP 1200 [facility] Last Admin: 06/11/17 13:31 Dose: 1 each Ondansetron HCl (Zofran) 4 mg IVP Q6H PRN PRN Reason: Nausea/Vomiting Potassium Chloride (K-Dur) 40 meq PO ASDIR PRN PRN Reason: FOR SERUM K+ 2.5 - 3.5 Potassium Chloride (Klor-Con) 40 meq PER TUBE ASDIR PRN PRN Reason: FOR SERUM K+ 2.5-3.5 Last Admin: 06/04/17 16:06 Dose: 40 meq Simvastatin (Zocor) 5 mg PO HS [facility] Last Admin: 06/10/17 20:57 Dose: 5 mg Sodium Chloride (Flush - Normal Saline) 10 ml IVF Q12HR [facility] Last Admin: 06/11/17 08:56 Dose: 10 ml Sodium Chloride (Flush - Normal Saline) 10 ml IVF PRN PRN PRN Reason: Saline Flush
[2017-06-11] MEDS: Carvedilol 3.125 MG TAB PO SCH (19:31)
[2017-06-11] MEDS: Escitalopram Oxalate 10 mg Tablet PO SCH (21:08)
[2017-06-11] MEDS: Simvastatin 5 MG TAB PO SCH (21:09)
[2017-06-12] MEDS: Amlodipine 5 MG TAB PO SCH (08:43)
[2017-06-12] MEDS: Docusate Sodium 100 MG/10 ML UDCUP PO SCH (08:43)
[2017-06-12] MEDS: Donepezil HCl 5 MG TAB PO SCH (08:43)
[2017-06-12] MEDS: guaiFENesin ER 600 MG TAB PO SCH (08:43)
[2017-06-12] MEDS: Famotidine 20 MG TAB PO SCH (08:46)
[2017-06-12] MEDS: Carvedilol 3.125 MG TAB PO SCH (08:46)
[2017-06-12 08:49] VITALS: BP 153/67
[2017-06-12 09:45] VITALS: TEMP 97.9
[2017-06-12 12:16] LABS: Potassium 3.6 mmol/L (3.5-5.1)
--- NOTE | 2017-06-12 12:44 | PRG ---
DATE OF SERVICE: 06/12/2017 OBJECTIVE: VITAL SIGNS: Remain stable. He is not febrile. Blood pressure 153/67, heart rate 71, respiratory r ate 20 and oximetry is 95%. He is approaching a point of stability that may not require rehabilitation if it takes much longer to get him into a rehab facility. We will sign off. He needs to see me in 3-4 weeks for a chest radio graph.
--- NOTE | 2017-06-12 12:46 | PDOC.PN ---
- Subjective Encounter Start Date: 06/12/17 Encounter Start Time: 12:44 Subjective: feels better.still some cough.eager to go out - Objective MAR Reviewed: Yes Vital Signs & Weight: Vital Signs (12 hours) Temp Pulse Resp BP BP Pulse Ox 06/12/17 12:05 64 20 06/12/17 09:04 95 06/12/17 09:00 71 20 95 06/12/17 08:43 79 153/67 H 06/12/17 08:00 97.9 F 79 16 153/67 H 94 L Weight Admit Weight 189 lb 1.6 oz Weight 195 lb 2.098 oz Most Recent Monitor Data Heart Rate from ECG 76 NIBP 141/84 NIBP BP-Mean 104 Respiration from ECG 17 SpO2 98 I&O: 06/11/17 06/12/17 06/13/17 06:59 06:59 06:59 Intake Total 981 1210 Output Total 800 Balance 181 1210 Result Diagrams: 06/11/17 05:21 06/12/17 11:57 Additional Labs: Microbiology 06/06/17 13:12 Venous blood - Left Hand Blood Culture - Final NO GROWTH IN 5 DAYS 06/06/17 13:06 Dialysis - Pending Blood Culture - Final NO GROWTH IN 5 DAYS 06/05/17 16:40 Nasopharyngeal swab Respiratory Panel (PCR) - Final 06/03/17 17:21 Nasopharynx Influenza Types A,B Direct EIA - Final 06/02/17 18:10 Bronchial Washing - Aspirate Respiratory Culture - Final 06/02/17 00:35 Sputum Respiratory Culture - Final 06/01/17 16:33 Nasal swab Influenza Types A,B Direct EIA - Final 06/01/17 15:40 Urine voided Urine Culture - Final NO GROWTH AT 36 HOURS 06/01/17 15:36 Venous blood - Right Hand Blood Culture - Final NO GROWTH IN 5 DAYS 06/01/17 13:55 Venous blood - Right Arm Blood Culture - Final Bacillus species,NOT anthracis Phys Exam - Physical Examination Constitutional: NAD HEENT: PERRLA, moist MMs, sclera anicteric, oral pharynx no lesions Neck: no nodes, no JVD, supple, full ROM Respiratory: no wheezing, no rales, no rhonchi, clear to auscultation bilateral Cardiovascular: RRR, no significant murmur Gastrointestinal: soft, non-tender, no distention, positive bowel sounds Musculoskeletal: no edema, pulses present Neurological: non-focal, normal sensation, moves all 4 limbs Psychiatric: normal affect, A&O x 3 Skin: no rash Dx/Plan (1) Sepsis Code(s): A41.9 - SEPSIS, UNSPECIFIED ORGANISM Status: Resolved Qualifiers: Sepsis type: sepsis due to unspecified organism Qualified Code(s): A41.9 - Sepsis, unspecified organism Comment: Sepsis is improving, Blood Cultures Repeated is no growth now. (2) PNA (pneumonia) Code(s): J18.9 - PNEUMONIA, UNSPECIFIED ORGANISM Status: Resolved Qualifiers: Pneumonia type: due to unspecified organism Laterality: left Lung location: upper lobe of lung Qualified Code(s): J18.1 - Lobar pneumonia, unspecified organism Comment: Pt extubated, Now, feeling better. WBC trending down.repeat cultures no growth,repeat NAAT -no viruses.recent influenza,s/p tamiflu. IV ABx finished 06/09 (3) Dyslipidemia Code(s): E78.5 - HYPERLIPIDEMIA, UNSPECIFIED Status: Chronic (4) Hypertension Code(s): I10 - ESSENTIAL (PRIMARY) HYPERTENSION Status: Chronic Qualifiers: Hypertension type: unspecified Qualified Code(s): I10 - Essential (primary ) hypertension Comment: Jeevan. (5) H/O carcinoma of bladder Code(s): Z85.51 - PERSONAL HISTORY OF MALIGNANT NEOPLASM OF BLADDER Status: Chronic (6) Senile dementia Code(s): F03.90 - UNSPECIFIED DEMENTIA WITHOUT BEHAVIORAL DISTURBANCE Status: Chronic - Plan OK to DC to rehab today. -: ABx course finished. -: OP f/u w and PCP -: Coreg added for BP still being high w good results * . Review of Systems - Review of Systems Constitutional: weakness, malaise. negative: fever, chills, sweats, other Respiratory: Cough. negative: Dry, Shortness of Breath, Hemoptysis, SOB with Excertion, Pleuritic Pain, Sputum, Wheezing Cardiovascular: negative: chest pain, palpitations, orthopnea, paroxysmal nocturnal dyspnea, edema, light headedness, other Gastrointestinal: negative: Nausea, Vomiting, Abdominal Pain, Diarrhea, Constipation, Melena, Hematochezia, Other Genitourinary: negative: Dysuria, Frequency, Incontinence, Hematuria, Retention , Other Musculoskeletal: negative: Neck Pain, Shoulder Pain, Arm Pain, Back Pain, Hand Pain, Leg Pain, Foot Pain, Other Neurological: negative: Weakness, Numbness, Incoordination, Change in Speech, Confusion, Seizures, Other - Medications/Allergies Allergies/Adverse Reactions: Allergies Allergy/AdvReac Type Severity Reaction Status Date / Time adhesive Allergy Verified 04/30/17 02:16 Medications: Current Medications Acetaminophen (Tylenol) 650 mg PO Q4H PRN PRN Reason: Headache/Fever or Pain Last Admin: 06/10/17 04:31 Dose: 650 mg Albuterol/Ipratropium (Duoneb) 3 ml NEB [id number] [facility] Last Admin: 06/12/17 12:05 Dose: 3 ml Amlodipine Besylate (Norvasc) 5 mg PO DAILY [facility] Last Admin: 06/12/17 08:43 Dose: 5 mg Lipase/Protease/Amylase ([place] [id number]) 1 cap FS .PER PROTOCOL PRN PRN Reason: TUBE OCCLUSION PROTOCOL Artificial Tears (Tears Renewed 15ml Bottle) 2 drop EA EYE BID PRN PRN Reason: DRY EYES Last Admin: 06/09/17 16:54 Dose: 2 drop Aspirin (Aspirin Chewable) 81 mg PER TUBE DAILY [facility] Last Admin: 06/12/17 08:46 Dose: 81 mg Calcium Carbonate (Tums) 1,000 mg PO Q4H PRN PRN Reason: Heartburn or Indigestion Carvedilol (Coreg) 3.125 mg PO BID[facility] Last Admin: 06/12/17 08:46 Dose: 3.125 mg Docusate Sodium (Colace Liquid) 100 mg PO BID [facility] Last Admin: 06/12/17 08:43 Dose: 100 mg Donepezil HCl (Aricept) 5 mg PO DAILY [facility] Last Admin: 06/12/17 08:43 Dose: 5 mg Escitalopram Oxalate (Lexapro) 10 mg PO HS [facility] Last Admin: 06/11/17 21:08 Dose: 10 mg Famotidine (Pepcid) 20 mg PO Q12HR [facility] Last Admin: 06/12/17 08:46 Dose: 20 mg Guaifenesin (Mucinex) 1,200 mg PO Q12HR [facility] Last Admin: 06/12/17 08:43 Dose: 1,200 mg Potassium Chloride 40 meq/ (Sodium Chloride) 270 mls @ 135 mls/hr IVPB ASDIR PRN PRN Reason: FOR SERUM K+ 2.5 - 3.5 Potassium Chloride 40 meq/ (Device) 100 mls @ 50 mls/hr IVPB ASDIR PRN PRN Reason: FOR SERUM K+ 2.5 - 3.5 Magnesium Sulfate 1 gm/ Sodium (Chloride) 102 mls @ 102 mls/hr IV PRN PRN PRN Reason: MAG LEVEL 1.4 - 2.0 Magnesium Sulfate 2 gm/ Device 100 mls @ 100 mls/hr IVPB ASDIR PRN PRN Reason: MAGNESIUM < 1.4 Potassium Phosphate 9 mmol/ (Sodium Chloride) 103 mls @ 25.75 mls/hr IVPB ASDIR PRN PRN Reason: Phosphate 1.0-1.8 Potassium Phosphate 12 mmol/ (Sodium Chloride) 254 mls @ 63.5 mls/hr IV ASDIR PRN PRN Reason: Serum phosphate 0.5-0.9 Potassium Phosphate 15 mmol/ (Sodium Chloride) 255 mls @ 63.75 mls/hr IV ASDIR PRN PRN Reason: Serum Phos < 0.5 Magnesium Oxide (Magnesium Oxide) 400 mg PO BIDPRN PRN PRN Reason: FOR SERUM MAG 1.4 - 2.0 Magnesium Oxide (Magnesium Oxide) 800 mg PO PRN PRN PRN Reason: FOR SERUM MAG < 1.4 Miscellaneous Medication (Phos-Nak) 1 pkt PO TIDPRN PRN PRN Reason: FOR PHOS LEVEL 1.0 - 1.8 Miscellaneous Medication (Phos-Nak) 2 pkt PO TIDPRN PRN PRN Reason: FOR PHOS LEVEL 0.5 - 1.0 Ondansetron HCl (Zofran) 4 mg IVP Q6H PRN PRN Reason: Nausea/Vomiting Potassium Chloride (K-Dur) 40 meq PO ASDIR PRN PRN Reason: FOR SERUM K+ 2.5 - 3.5 Potassium Chloride (Klor-Con) 40 meq PER TUBE ASDIR PRN PRN Reason: FOR SERUM K+ 2.5-3.5 Last Admin: 06/04/17 16:06 Dose: 40 meq Simvastatin (Zocor) 5 mg PO HS [facility] Last Admin: 06/11/17 21:09 Dose: Not Given Sodium Chloride (Flush - Normal Saline) 10 ml IVF Q12HR [facility] Last Admin: 06/12/17 08:47 Dose: 10 ml Sodium Chloride (Flush - Normal Saline) 10 ml IVF PRN PRN PRN Reason: Saline Flush
--- NOTE | 2017-06-12 23:35 | DIS ---
DATE OF ADMISSION: 06/01/2017 DATE OF DISCHARGE: 06/12/2017 CONDITION AT THE TIME OF DISCHARGE: Stable and improved. DISCHARGE DISPOSITION: Inpatient rehabilitation to [facility]. DISCHARGE DIAGNOSES: 1. Acute respiratory failure secondary to pneumonia. 2. Sepsis. 3. Lobar pneumonia. 4. Dyslipidemia. 5. Hypertension. 6. History of bladder carcinoma. 7. Dementia. DISCHARGE MEDICATIONS: Include Zocor 5 mg daily, Lexapro 10 mg daily, Aricept 5 mg daily, aspirin 81 mg daily, amlodipine 5 mg daily, Mucinex 1200 mg p.o. q.12 h, Pepcid 20 mg q.12 h., Coreg 3.125 mg p .o. b.i.d., Tums 1000 mg p.o. 4 hours p.r.n., artificial tears p.r.n., Tylenol p.r.n. CONSULTATIONS: Inhouse include, 1. Pulmonary Medicine, Dr. Watt. 2. Infectious Disease, Dr. Ford. PROCEDURES DONE: In the hospital include, 1. CT scan of the chest, abdomen, and pelvis upon admission which shows bilateral consolidation in t he lungs consistent with pneumonia without any pneumothoraces or cavitation and small hiatal hernia, as well as sigmoid diverticulosis. 2. Endotracheal intubation with subsequent eventual extubation. 3. Bronchoscopy. The bronchoscopy showed some blood coming out of the right lower lobe without any obvious lesion. 4. Multiple chest x-rays while he was intubated on a daily basis. PRIMARY CARE PHYSICIAN: Kojo Walker M.D. HISTORY OF PRESENT ILLNESS: Mr. Morillo is an 82-year-old male with past medical history of bladder ca ncer, status post removal as well as hypertension and dyslipidemia who presented to the emergency [facility] with complaints of cough, cold, congestion, fever, and flu-like symptoms. Upon presentation, he wa s noted to be hypoxic as per the history provided by his . He was found to have a pulse ox of 75 % on room air at home according to the family. He was found to have elevated BNP of 457, WBCs of 10. 9 with 40 bands. Sodium of 129, potassium of 3.3. His CT scan done in the emergency room was consis tent with bilateral pneumonia. He was given empiric antibiotics, nebulizers, oxygen and was admitted for significant respiratory distress. Infectious Disease and Pulmonary Medicine were consulted. HOSPITAL COURSE: The patient actually had some worsening before improvement. He was initially admit jhonny to IMCU, but had to be transitioned to critical care unit and intubated with worsening of respira tory distress. He was showing signs of respiratory muscle fatigue and was empirically intubated and bronchoscopy was done. He also had some hemoptysis, but the bronchoscopy just showed some bleeding w ithout any obvious lesions. The patient was monitored on a day to day basis and was continued on empiric antibiotics. Infectious Disease, Dr. Ford also saw the patient. The patient was recently treated for influenza and he sugg ested that this is most likely post-influenza bronchopneumonia with hemorrhaging characteristics cons istent with necrotizing pneumonia. Antibiotics were adjusted according to Infectious Disease. Eventually, the patient improved to the point where he was extubated and moved to the regular medical floor where he finished the course of IV antibiotic and was transitioned to oral antibiotics. He wa s also treated with IV steroids, which were also transitioned to oral steroids. Therefore, discharge d, the patient has finished the course of both steroids and antibiotics and Dr. Watt has stopped all of these. By the day of discharge, the patient is almost back to his baseline except for severe weakness relate d to recent illness. He was evaluated by the rehab and [facility] this morning and will be sent to the [facility] shortly. He was seen and examined prior to the discharge today and discharge plan was discussed with the patie nt and his multiple times in the last few days and today as well. They verbalized understanding . He was started on medications for blood pressure as his amlodipine that he takes at home was not a dequate and his blood pressure was running high. He has tolerated the addition of Coreg very well, w hich will be continued in the outpatient setting. I have encouraged them to discuss this further wit h the primary care physician. Please see hospital note from today's date for further detail including [id number] interaction. At this time, he is stable for discharge for the rehabilitation. He is instructed to follow up as an o utpatient with Pulmonary Medicine, Dr. Watt, as well as with his primary care physician. Total time spent in the discharge of this patient, 32 minutes.
== END 2017-06-12 16:13 | DRG 853 ==
LOC: ERS 13:24 → IMCU/EMU 19:53 → CCU 06-02 17:27 → ONC 06-08 13:01
PROVIDERS: ADMIT Internal Medicine; ATTEND Internal Medicine
PROC: 0BH17EZ Insertion of Endotracheal Airway into Trachea, Via Natural or Artificial Opening (ICD-10-PCS; principal; 2017-06-03)
PROC: 0B9F8ZX Drainage of Right Lower Lung Lobe, Via Natural or Artificial Opening Endoscopic, Diagnostic (ICD-10-PCS; 2017-06-03)
PROC: 5A1945Z Respiratory Ventilation, 24-96 Consecutive Hours (ICD-10-PCS; 2017-06-03)
PROC: 0BJ08ZZ Inspection of Tracheobronchial Tree, Via Natural or Artificial Opening Endoscopic (ICD-10-PCS; 2017-06-03)
DX: A41.9 Sepsis, unspecified organism (principal); J96.01 Acute respiratory failure with hypoxia; J85.0 Gangrene and necrosis of lung; G93.40 Encephalopathy, unspecified; J13 Pneumonia due to Streptococcus pneumoniae; J44.0 Chronic obstructive pulmonary disease with (acute) lower respiratory infection; E87.1 Hypo-osmolality and hyponatremia; R04.2 Hemoptysis; F03.90 Unspecified dementia, unspecified severity, without behavioral disturbance, psychotic disturbance, mood disturbance, and anxiety; E78.5 Hyperlipidemia, unspecified; I10 Essential (primary) hypertension; Z85.51 Personal history of malignant neoplasm of bladder; Z87.891 Personal history of nicotine dependence; Z79.82 Long term (current) use of aspirin; E87.6 Hypokalemia; D64.89 Other specified anemias; K57.30 Diverticulosis of large intestine without perforation or abscess without bleeding; F41.9 Anxiety disorder, unspecified; F32.9 Major depressive disorder, single episode, unspecified
CPT/HCPCS: 36415; 36416; 71045; 71260; 74177; 80048; 80053; 80202; 81003; 81015; 82553; 82805; 83605; 83690; 83735; 83880; 84132; 84443; 84484; 85007; 85025; 85027; 85610; 87040; 87070; 87086; 87205; 87633; 87798; 87804; 87899; 93005; 93010; 94002; 94003; 94640; 96361; 96365; 96367; A4216; G8978-GP-CJ; G8979-GP-CH; G8987-GO-CL; G8988-GO-CI; G8996-GN-CJ; G8996-GN-CL; G8997-GN-CI; J0696; J1956; J2020; J2060; J2250; J2405; J2543; J2704; J2920; J3010; J3370; J7050; J7506; J7620; S0028

== ENCOUNTER → 2017-06-13 | Day surgery (SDC) | payer MEDICARE, OTHER ==
--- NOTE | 2017-06-13 15:48 | RAD ---
TWO VIEWS OF THE LEFT FOOT: HISTORY: Swollen big toe and pain. FINDINGS: Two views of the left foot show severe joint space narrowing and osteophyte formation surrounding the metatarsal phalangeal joint. No obvious osseous erosions are seen. There is no evidence of fractur e or dislocation. Moderate diffuse soft tissue swelling is seen. 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 POS: RICHARD
== END ==
LOC: HS RAD 12:11
PROVIDERS: ATTEND Internal Medicine
DX: R22.42 Localized swelling, mass and lump, left lower limb (principal); M79.675 Pain in left toe(s); I10 Essential (primary) hypertension; E78.5 Hyperlipidemia, unspecified; F03.90 Unspecified dementia, unspecified severity, without behavioral disturbance, psychotic disturbance, mood disturbance, and anxiety; Z79.82 Long term (current) use of aspirin; Z79.899 Other long term (current) drug therapy; Z98.890 Other specified postprocedural states; Z91.048 Other nonmedicinal substance allergy status; Z85.51 Personal history of malignant neoplasm of bladder; Z87.891 Personal history of nicotine dependence

== ENCOUNTER 2017-06-16 10:35 | Emergency (ER) | payer MEDICARE, OTHER ==
[2017-06-16] MEDS ORDERED: Succinylcholine Chloride 20 MG/ML 10 ml SYRINGE FS ONE (10:38)
[2017-06-16] MEDS ORDERED: EPINEPHrine 1 MG, Admixture Fee 1 EACH in Dextrose 5% in Water 250 ML IVPB SCH ×3 (11:15)
[2017-06-16] MEDS ORDERED: Adenosine 6 MG/2 ML VIAL ONE (16:30)
[2017-06-16] MEDS ORDERED: EPINEPHrine 1 MG/10 ML Abboject SYRINGE ONE (16:30)
[2017-06-16] MEDS ORDERED: Sodium Bicarb 50 MEQ/50 ML Abboject 8.4% SYRINGE ONE (16:30)
[2017-06-16] MEDS ORDERED: Calcium Chloride 1 GM/10 ML Abboject SYRINGE ONE (16:30)
== END 2017-06-16 11:10 | disposition expired ==
LOC: ERS 10:35
DX: I46.9 Cardiac arrest, cause unspecified (principal); E78.5 Hyperlipidemia, unspecified; I10 Essential (primary) hypertension; F03.90 Unspecified dementia, unspecified severity, without behavioral disturbance, psychotic disturbance, mood disturbance, and anxiety; Z85.51 Personal history of malignant neoplasm of bladder
CPT/HCPCS: 31500; 36556; 92950; 96374; 96375; J0153; J0171; J7070